=== PATIENT | female | born 1945 | race Caucasian/White ===

== ENCOUNTER 2018-02-06 07:31 | Day surgery (SDC) | payer MEDICARE ==
[2018-02-06] MEDS ORDERED: Lactated Ringer's 500 ML IV ONE (08:02)
[2018-02-06 08:14] VITALS: TEMP 97
[2018-02-06] MEDS ORDERED: Propofol 10 mg/ml Inj (20 ML) ONE (09:10)
[2018-02-06] MEDS ORDERED: Lidocaine PF 2% (5 ml) Inj (For Cardiac Arrhy) IV ONE (09:10)
[2018-02-06 10:09] VITALS: O2SAT 99
[2018-02-06 10:29] VITALS: BP 115/69; PULSE 79; RESP 21
== END 2018-02-06 10:30 | disposition home or self-care (01) ==
LOC: H.ENDO 07:31
PROVIDERS: ATTEND Internal Medicine Gastroenterology
DX: Z12.11 Encounter for screening for malignant neoplasm of colon (principal); D12.9 Benign neoplasm of anus and anal canal; K64.8 Other hemorrhoids; Z86.010 Personal history of colon polyps
CPT/HCPCS: 45390; 82948; 88305; J2704; J7120

== ENCOUNTER 2018-05-28 20:19 | Observation (INO) | payer MEDICARE, OTHER ==
--- NOTE | 2018-05-28 20:36 | ED PDOC ---
HPI:STROKE - Time Time: 20:31 - Historian Historian: Patient - Chief Complaint Chief Complaint: Slurred speech - Onset Date: 05/28/18 Time: 19:30 - Timing Timing: Resolved - TPA Positive for Contraindication: Yes Reason tPA is not being Administered: NIH 0; Symptoms - Notes: Notes:: Per son, pt. had slurred speech and confusion 1 hr prior to arrival. Before 1 hr, pt. was fine. Per EMS, when they showed up, pt. had no symptoms. Pt. currently denies any symptoms. No chest pain, numbness, tingles, weakness, dizziness, slurred speech. No headaches. Has hx of 2 strokes. NIHSS Stroke Scale - Date/Time Evaluation Performed Date Performed: 05/28/18 Time Performed: 20:36 When Was NIHSS Performed: Baseline - How Severe is the Stroke Level of Consciousness: 0=Alert LOC to Questions: 0=Both comments correct LOC to commands: 0=Obeys both correctly Best Gaze: 0=Normal Visual: 0=No visual loss Facial: 0=Normal Motor Arm - Left: 0=No drift Motor Arm - Right: 0=No drift Motor Leg - Left: 0=No drift Motor Leg - Right: 0=No drift Limb Ataxia: 0=Absent Sensory: 0=Normal Best Language: 0=No aphasia Dysarthia: 0=Normal articulation Extinction & Inattention (Neglect): 0=Normal, no object Score: 0 rTPA Inclusion/Exclusion - Refusal of Treatment Patient Refused Treatment: No - Inclusion Criteria for Altepase Patient is 18 years or Older: Yes The Clinical Diagnosis of Ischemic Stroke That is Causing a Potentially Disabling Neurological Deficit: No Time of Onset is Well Established to be Less Than 270 Minute Before Treatment Would Begin: Yes Risk/Benefit Discussed With Patient/Family Member Present: No Past Medical History Reviewed: Nursing Documentation, Vital Signs Vital Signs: Last Vital Signs Temp 98 F 05/28/18 20:26 Pulse 82 05/28/18 20:26 Resp 16 05/28/18 20:26 BP 148/92 H 05/28/18 20:26 Pulse Ox 99 05/28/18 20:26 - Medical History PMH: CVA (x2), Diabetes, HTN, Hypercholesterolemia Denies: Chronic Kidney Disease - Surgical History Surgical History: Tonsillectomy - Family History Family History: States: Unknown Family Hx - Living Arrangements Living Arrangements: With Family - Social History Current smoker - smoking cessation education provided: No Alcohol: None Drugs: Denies - Home Medications Home Medications: Ambulatory Orders Medication Instructions Recorded Clopidogrel [Plavix] 1 tab PO DAILY 02/06/18 Glimepiride [amaRYL] 1 tab PO DAILY 02/06/18 Hydrochlorothiazide [Microzide] 1 tab PO DAILY 02/06/18 Levothyroxine [Synthroid] 1 tab PO DAILY 02/06/18 QUEtiapine [Seroquel] 1 tab PO HS 02/06/18 SITagliptin [Januvia] 1 tab PO DAILY 02/06/18 - Allergies Allergies/Adverse Reactions: Allergies Allergy/AdvReac Type Severity Reaction Status Date / Time aspirin Allergy ANAPHYLAXIS Verified 05/28/18 20:26 Penicillins Allergy ANAPHYLAXIS Verified 05/28/18 20:26 shrimp AdvReac ANAPHYLAXIS Verified 05/28/18 20:26 Review of Systems ROS Statement: Except As Marked, All Systems Reviewed And Found Negative Neurological: Positive for: Change in Speech, Confusion Physical Exam - Reviewed Nursing Documentation Reviewed: Yes Vital Signs Reviewed: Yes - Physical Exam Appears: Positive for: Non-toxic, No Acute Distress Head Exam: Positive for: ATRAUMATIC, NORMAL INSPECTION, NORMOCEPHALIC Skin: Positive for: Normal Color, Warm, DRY Eye Exam: Positive for: EOMI, Normal appearance, PERRL ENT: Positive for: Normal ENT Inspection Neck: Positive for: Normal, Painless ROM Cardiovascular/Chest: Positive for: Regular Rate, Rhythm Respiratory: Positive for: CNT, Normal Breath Sounds Gastrointestinal/Abdominal: Positive for: Normal Exam, Soft. Negative for: Tenderness Back: Positive for: Normal Inspection. Negative for: L CVA Tenderness, R CVA Tenderness Extremity: Positive for: Normal ROM. Negative for: Tenderness, Pedal Edema Neurologic/Psych: Positive for: Alert, room cleaner II-XII, Oriented. Negative for: Motor/Sensory Deficits, Mood/Affect, Gait, Aphasia, Facial Droop - Laboratory Results Result Diagrams: 05/28/18 20:37 05/28/18 20:37 Interpretation Of Abn Labs: 24/12.6 bun/cr - ECG ECG: Positive for: Interpreted By Me, Viewed By Me ECG Rhythm: Positive for: Normal QRS, Normal ST Segment, Sinus Rhythm O2 Sat by Pulse Oximetry: 99 Pulse Ox Interpretation: Normal - Radiology X-Ray: Interpreted by Me, Viewed By Me X-Ray Interpretation: No Acute Disease - CT Scan/US ct Other Rad Studies (CT/US): Read By Radiologist Other Rad Interpretation: no acute - Progress ED Course And Treament: 2117: Spoke with Dr. Wayne. Not a thrombolytic candidate. Pt. took plavix today. Wants asa, but pt. allergy so will hold. Spoke with Dr. Pinedo as pt. pcp is Dr. Oniel Negron in [place]. Will admit tele obs and give further orders when pt. reaches floor. Disposition - Clinical Impression Clinical Impression: TIA (transient ischemic attack) - Patient ED Disposition Is Patient to be Admitted: Yes Counseled Patient/Family Regarding: Studies Performed, Diagnosis - Disposition Disposition Time: 21:21 Condition: FAIR - Pt Status Changed To: Hospital Disposition Of: Observation - POA Present On Arrival: None
[2018-05-28] MEDS ORDERED: Sodium Chloride 0.9% 500 ML IV STA (20:40)
[2018-05-28 20:43] LABS: BASO # 0.1 K/uL (0.0-0.2); BASO % 1.1 % (0.0-2.0); EOS # 0.1 K/uL (0.0-0.7); EOS % 1.7 % (0.0-4.0); HEMOGLOBIN 14.5 g/dL (12.0-16.0); LYMPH # 3.2 K/uL (1.0-4.3); LYMPH % 38.2 % (20.0-40.0); MEAN CELL VOLUME 91.4 fl (81.0-99.0); MEAN CORPUSCULAR HEMOGLOBIN 30.1 pg (27.0-31.0); MEAN PLATELET VOLUME 10.8 fl (7.2-11.7); MONO # 0.7 K/uL (0.0-0.8); MONO % 8.6 % (0.0-10.0); NEUT # 4.3 K/uL (1.8-7.0); NEUT % 50.4 % (50.0-75.0); NRBC % 0.1 % (0.0-0.0); RBC 4.81 Mil/uL (3.80-5.20); RED CELL DISTRIBUTION WIDTH 15.2 % (11.5-14.5); WHITE BLOOD COUNT 8.5 K/uL (4.8-10.8)
[2018-05-28 20:51] LABS: ALB/GLOB RATIO 1.3 (1.0-2.1); ALBUMIN 4.4 g/dL (3.5-5.0); ALT/SGPT 45 U/L (9-52); AST/SGOT 41 U/L (14-36); BLOOD UREA NITROGEN 27 mg/dl (7-17); CALCIUM 10.3 mg/dL (8.4-10.2); GFR AFRICAN-AMERICAN 39; GFR NON-AFRICAN AMERICAN 32; HDL CHOLESTEROL 36 MG/DL (30-70)
[2018-05-28 20:52] LABS: PARTIAL THROMBOPLASTIN TIME 31.7 Seconds (25.6-37.1)
[2018-05-28 21:02] LABS: LDL CHOLESTEROL 72 mg/dL (0-129)
--- NOTE | 2018-05-29 08:44 | CT ---
PROCEDURE: CT HEAD WITHOUT CONTRAST. HISTORY: code stroke COMPARISON: None available. TECHNIQUE: Axial computed tomography images were obtained through the head/brain without intravenous contrast. Radiation dose: Total exam DLP = 853.73 mGy-cm. This CT exam was performed using one or more of the following dose reduction techniques: Automated exposure control, adjustment of the mA and/or kV according to patient size, and/or use of iterative reconstruction technique. FINDINGS: HEMORRHAGE: No intracranial hemorrhage. BRAIN: No mass effect or edema. Old left frontal cat radiata infarct. No evidence of acute infarct. Moderate chronic periventricular and deep white matter lucency consistent with chronic microvascular ischemic change. VENTRICLES: Unremarkable. No hydrocephalus. CALVARIUM: Unremarkable. PARANASAL SINUSES: Unremarkable as visualized. No significant inflammatory changes. MASTOID AIR CELLS: Unremarkable as visualized. No inflammatory changes. OTHER FINDINGS: None. IMPRESSION: No evidence of acute infarct. No intracranial mass or hemorrhage. Chronic white matter ischemic change. Old left cat radiata infarct. Preliminary interpretation of this examination was reported by [facility] at 8:52 p.m. on 05/28/2018. There is concurrence of this report with the preliminary interpretation.
[2018-05-29] MEDS ORDERED: Levothyroxine 75 MCG TAB PO SCH (09:00)
[2018-05-29] MEDS ORDERED: Cholecalciferol 1,000 INTLU TAB PO SCH (09:00)
--- NOTE | 2018-05-29 09:57 | CP.PCM.CON ---
History of Present Illness - History of Present Illness History of Present Illness: Consultation for evalvuation of TIA/ slurred speech and connfusion HPI: 72-year-old female with past medical history significant for hypertension diabetes mellitus CVA dementia presented with complaints of episode of delirium with the slurred speech that we was noted by her friend 1 hour prior to presentation. According to the patient she went out to shop and on returning started feeling not herself friend who was visiting noticed that she is somewhat confused with a mild sliding in her speech. Prior to the episode she denied having any chest pains shortness of breath palpitations she does have prior history of CVA. CT of the head in the emergency room showed old left frontal coronary radiata patient herself feels that symptoms and attributed most likely secondary to effects of heat as it was a hard day and she felt somewhat dehydrated clinically and on laboratory findings consistent with possible prerenal azotemia with an elevated BUN and creatinine she was given Plavix by neurology is allergic to aspirin and is awaiting MRI and MRA of the brain and carotids as well as an echocardiogram. EKG reviewed normal sinus rhythm left anterior fascicular block with mild left atrial enlargement. Infarct with no acute changes. Review of Systems - Review of Systems Systems not reviewed;Unavailable: Acuity of Condition - Constitutional Constitutional: As Per HPI - EENT Eyes: As Per HPI Ears: As Per HPI - Breasts Breasts: As Per HPI - Cardiovascular Cardiovascular: As Per HPI - Respiratory Respiratory: As Per HPI - Gastrointestinal Gastrointestinal: As Per HPI - Genitourinary Genitourinary: As Per HPI - Reproductive: Female Reproductive:Female: As Per HPI - Menstruation Menstruation: As Per HPI - Musculoskeletal Musculoskeletal: As Per HPI - Integumentary Integumentary: As Per HPI - Neurological Neurological: As Per HPI - Psychiatric Psychiatric: As Per HPI - Endocrine Endocrine: As Per HPI - Hematologic/Lymphatic Hematologic: As Per HPI Past Patient History - Past Medical History & Family History Past Medical History?: Yes - Past Social History Smoking Status: Former Smoker - CARDIAC Hx Cardiac Disorders: Yes - PULMONARY Hx Respiratory Disorders: No - NEUROLOGICAL Hx Neurological Disorder: Yes - HEENT Hx HEENT Problems: No - RENAL Hx Chronic Kidney Disease: No - ENDOCRINE/METABOLIC Hx Endocrine Disorders: Yes - HEMATOLOGICAL/ONCOLOGICAL Hx Blood Disorders: No - INTEGUMENTARY Hx Dermatological Problems: No - MUSCULOSKELETAL/RHEUMATOLOGICAL Hx Musculoskeletal Disorders: No Hx Falls: No - GASTROINTESTINAL Hx Gastrointestinal Disorders: No - GENITOURINARY/GYNECOLOGICAL Hx Genitourinary Disorders: No - PSYCHIATRIC Hx Psychophysiologic Disorder: No Hx Emotional Abuse: No Hx Physical Abuse: No Hx Substance Use: No - SURGICAL HISTORY Hx Tonsillectomy: Yes - ANESTHESIA Hx Anesthesia: Yes Hx Anesthesia Reactions: No Hx Malignant Hyperthermia: No Meds Allergies/Adverse Reactions: Allergies Allergy/AdvReac Type Severity Reaction Status Date / Time aspirin Allergy ANAPHYLAXIS Verified 05/28/18 20:26 Penicillins Allergy ANAPHYLAXIS Verified 05/28/18 20:26 shrimp AdvReac ANAPHYLAXIS Verified 05/28/18 20:26 - Medications Medications: Current Medications Atorvastatin Calcium (Lipitor) 10 mg PO DAILY [facility] Calcitriol (Rocaltrol) 0.25 mcg PO DAILY [facility] Cholecalciferol (Vitamin D) 1,000 intlu PO DAILY [facility] Clopidogrel Bisulfate (Plavix) 75 mg PO DAILY [facility] Last Admin: 05/29/18 09:33 Dose: 75 mg Donepezil HCl (Aricept) 10 mg PO DAILY [facility] Enoxaparin Sodium (Lovenox) 40 mg SC DAILY [facility] PRN Reason: Protocol Glipizide (Glucotrol Xl) 10 mg PO DAILY [facility] Hydrochlorothiazide (Microzide) 12.5 mg PO DAILY [facility] Isosorbide Mononitrate (Imdur Er) 30 mg PO DAILY [facility] Levothyroxine Sodium (Synthroid) 75 mcg PO DAILY@0630 [facility] Memantine (Namenda) 10 mg PO DAILY [facility] Qictt-8-Bzax Ethyl Esters (Lovaza) 1 gm PO DAILY [facility] Quetiapine Fumarate (Seroquel) 100 mg PO HS [facility] Sitagliptin Phosphate (Januvia) 100 mg PO DAILY [facility] Physical Exam - Constitutional Appears: Well - Head Exam Head Exam: ATRAUMATIC, NORMAL INSPECTION, NORMOCEPHALIC - Eye Exam Eye Exam: EOMI, Normal appearance, PERRL Pupil Exam: NORMAL ACCOMODATION, PERRL - ENT Exam ENT Exam: Mucous Membranes Moist, Normal Exam - Neck Exam Neck exam: Positive for: Normal Inspection - Respiratory Exam Respiratory Exam: Clear to Auscultation Bilateral, NORMAL BREATHING PATTERN - Cardiovascular Exam Cardiovascular Exam: REGULAR RHYTHM, +S1, +S2, Systolic Murmur - GI/Abdominal Exam GI & Abdominal Exam: Normal Bowel Sounds, Soft. absent: Tenderness - Extremities Exam Extremities exam: Positive for: normal inspection - Back Exam Back exam: NORMAL INSPECTION - Neurological Exam Neurological exam: Alert, CN II-XII Intact, Normal Gait, Oriented x3, Reflexes Normal - Psychiatric Exam Psychiatric exam: Normal Affect, Normal Mood - Skin Skin Exam: Dry, Intact, Normal Color, Warm Results - Vital Signs Recent Vital Signs: Last Vital Signs Temp 97.7 F 05/29/18 08:00 Pulse 57 L 05/29/18 08:00 Resp 18 05/29/18 08:00 BP 92/55 L 05/29/18 08:00 Pulse Ox 98 05/29/18 08:00 - Labs Result Diagrams: 05/28/18 20:37 05/28/18 20:37 Labs: Laboratory Results - last 24 hr 05/28/18 05/28/18 05/28/18 20:29 20:30 20:37 WBC 8.5 RBC 4.81 Hgb 14.5 Hct 43.9 MCV 91.4 MCH 30.1 MCHC 33.0 RDW 15.2 H Plt Count 198 MPV 10.8 Neut % (Auto) 50.4 Lymph % (Auto) 38.2 [place] % (Auto) 8.6 Eos % (Auto) 1.7 Baso % (Auto) 1.1 Neut # (Auto) 4.3 Lymph # (Auto) 3.2 [place] # (Auto) 0.7 Eos # (Auto) 0.1 Baso # (Auto) 0.1 ESR PT INR APTT Sodium Potassium Chloride Carbon Dioxide Anion Gap BUN Creatinine Est GFR ( Amer) Est GFR (Non-Af Amer) POC Glucose (mg/dL) 139 H Random Glucose Calcium Total Bilirubin AST ALT Alkaline Phosphatase Troponin I Total Protein Albumin Globulin Albumin/Globulin Ratio Triglycerides Cholesterol LDL Cholesterol Direct HDL Cholesterol Vitamin B12 TSH 3rd Generation Blood Type O POSITIVE Antibody Screen Negative BBK History Checked No verified bt 05/28/18 05/28/18 05/29/18 20:37 20:37 04:51 WBC RBC Hgb Hct MCV MCH MCHC RDW Plt Count MPV Neut % (Auto) Lymph % (Auto) [place] % (Auto) Eos % (Auto) Baso % (Auto) Neut # (Auto) Lymph # (Auto) [place] # (Auto) Eos # (Auto) Baso # (Auto) ESR PT 11.0 INR 1.0 APTT 31.7 Sodium 140 Potassium 4.3 Chloride 103 Carbon Dioxide 22 Anion Gap 19 BUN 27 H Creatinine 1.6 H Est GFR ( Amer) 39 Est GFR (Non-Af Amer) 32 POC Glucose (mg/dL) Random Glucose 143 H Calcium 10.3 H Total Bilirubin 0.5 AST 41 H ALT 45 Alkaline Phosphatase 102 Troponin I < 0.0120 Total Protein 7.8 Albumin 4.4 Globulin 3.4 Albumin/Globulin Ratio 1.3 Triglycerides 239 H Cholesterol 154 LDL Cholesterol Direct 72 HDL Cholesterol 36 Vitamin B12 505 TSH 3rd Generation 8.69 H Blood Type Antibody Screen BBK History Checked 05/29/18 06:00 WBC RBC Hgb Hct MCV MCH MCHC RDW Plt Count MPV Neut % (Auto) Lymph % (Auto) [place] % (Auto) Eos % (Auto) Baso % (Auto) Neut # (Auto) Lymph # (Auto) [place] # (Auto) Eos # (Auto) Baso # (Auto) ESR 16 PT INR APTT Sodium Potassium Chloride Carbon Dioxide Anion Gap BUN Creatinine Est GFR ( Amer) Est GFR (Non-Af Amer) POC Glucose (mg/dL) Random Glucose Calcium Total Bilirubin AST ALT Alkaline Phosphatase Troponin I Total Protein Albumin Globulin Albumin/Globulin Ratio Triglycerides Cholesterol LDL Cholesterol Direct HDL Cholesterol Vitamin B12 TSH 3rd Generation Blood Type Antibody Screen BBK History Checked Assessment & Plan (1) TIA (transient ischemic attack) Assessment and Plan: echo pending MRA ordered monitor on telemetry Status: Acute (2) HTN (hypertension) Status: Acute (3) Dyslipidemia Status: Acute
--- NOTE | 2018-05-29 10:09 | RAD ---
HISTORY: Code Stroke COMPARISON: No prior. FINDINGS: LUNGS: No active pulmonary disease. PLEURA: No significant pleural effusion identified, no pneumothorax apparent. CARDIOVASCULAR: Normal. OSSEOUS STRUCTURES: No significant abnormalities. VISUALIZED UPPER ABDOMEN: Normal. OTHER FINDINGS: None. IMPRESSION: No active disease.
[2018-05-29] MEDS: GlipiZIDE 10 mg SR Tab PO SCH (10:59)
[2018-05-29] MEDS: Omega-3-Acid Ethyl Esters 1 GM Cap PO SCH (11:01)
[2018-05-29] MEDS: Enoxaparin 40 mg Syringe SC SCH (11:01)
[2018-05-29] MEDS ORDERED: Levothyroxine 100 MCG TAB PO SCH (13:30)
--- NOTE | 2018-05-29 15:06 | MRI ---
PROCEDURE: MRI BRAIN WITHOUT CONTRAST HISTORY: r/o TIA COMPARISON: None. TECHNIQUE: Multiplanar, multisequence MR images of the brain were obtained without intravenous contrast enhancement. FINDINGS: HEMORRHAGE: No acute parenchymal, subarachnoid or extra-axial hemorrhage. No evidence of hemosiderin deposition identified on gradient echo weighted sequence. DWI: There is a very tiny acute/ subacute infarct in the right medial inferior occipital lobe which is best seen on diffusion imaging series 3, image number 7. No other acute or subacute infarcts are identified. BRAIN PARENCHYMA: There is a moderate-sized chronic left MCA territory infarct which involves the left frontal lobe including the left frontal operculum and and superior the sub insular region. There also appears to be some involvement of the left anterior superior basal ganglia as well. In addition, there are moderate diffuse/confluent chronic white matter ischemic changes seen throughout the remaining periventricular white matter both cerebral hemispheres with a few scattered superior basal nuclei/ coronal radiata junction chronic lacunar-type infarcts. There are small chronic appearing lacunar type infarcts both cerebellar hemispheres. VENTRICLES: No obstructive hydrocephalus. CRANIUM: Unremarkable. ORBITS: Orbits and contents unremarkable. PARANASAL SINUSES/MASTOIDS: Clear VASCULAR SYSTEM: Visualized major vascular flow voids at skull base patent. OTHER FINDINGS: None. IMPRESSION: There is a tiny acute/subacute infarct right inferomedial occipital pole. Chronic white matter superior basal ganglia/ coronal radiata junction and bilateral cerebellar ischemic changes as described. Note that these findings were discussed with ICU Nurse Oly at approximately 2:54 p.m. with written down and read back verification.
--- NOTE | 2018-05-29 15:10 | MRI ---
PROCEDURE: MR Angiography of the neck without contrast HISTORY: r/o TIA COMPARISON: None available. TECHNIQUE: 3D [id number] angiography of the neck was performed. Rotating maximum intensity projection images of the cervical carotid and vertebral arteries were generated. The origins of the common carotid arteries were not visualized, which is a limitation inherent to the non-contrast time of flight technique. FINDINGS: RIGHT CAROTID ARTERIES: Common Carotid Artery: Normal. Carotid Bifurcation: Normal. Internal Carotid Artery:Normal. Note is made of a short retropharyngeal course of the mid-distal right common carotid artery and bifurcation as well as proximal right internal carotid artery. External Carotid Artery (proximal branches): Normal. LEFT CAROTID ARTERIES: Common Carotid Artery: Normal. Carotid Bifurcation: Normal. Internal Carotid Artery:Normal. External Carotid Artery (proximal branches): Normal. VERTEBRAL ARTERIES: Both vertebral arteries are patent throughout. Vertebral arteries are relatively symmetric OTHER FINDINGS: None. IMPRESSION: Normal MR Angiography of the neck. . Note is made of a short retropharyngeal course of the mid-distal right common carotid artery, carotid bifurcation and proximal right internal carotid artery
--- NOTE | 2018-05-29 15:22 | MRI ---
PROCEDURE: Magnetic Resonance Angiography Brain HISTORY: Rule out TIA COMPARISON: Correlation made with concurrent MRI brain and MRA neck TECHNIQUE: 3D time of flight MR angiography of the intracranial arteries was performed. Rotating maximum intensity projection images were generated. FINDINGS: INTERNAL CAROTID ARTERIES: Unremarkable. The skull base, petrous, cavernous and supraclinoid segments are bilaterally widely patient. ANTERIOR CEREBRAL ARTERIES: Unremarkable. A1 and A2 segments are widely patent. Smaller distal branches unremarkable, as visualized. MIDDLE CEREBRAL ARTERIES: M1 and M2 segments are widely patent. . Minimal of asymmetry of the perisylvian branches with slight paucity of left-sided left anterior branches likely related to prior infarct. . POSTERIOR CIRCULATION: Basilar Artery: Unremarkable. Distal Vertebral Arteries: Unremarkable. Posterior Cerebral Arteries: There appears to be mild localized narrowing of the P2 segment right posterior cerebral artery. . Posterior Inferior Cerebellar Arteries: Unremarkable. ANEURYSM/ VASCULAR MALFORMATIONS: None. OTHER FINDINGS: None. IMPRESSION: . There appears to be a slight on asymmetry of the distal branches of the middle cerebral arteries, left-sided which demonstrates a relative paucity compared the right corresponding within infarct changes involving the anterior branches of the left MCA. In addition, there is localized mild narrowing P2 segment right posterior cerebral artery
--- NOTE | 2018-05-29 16:09 | CARD ---
APPROVED REPORT EXAM: Two-dimensional and M-mode echocardiogram with Doppler and color Doppler. Other Information Quality : AverageRhythm : NSR Technically limited study due to Poor Echo Window INDICATION LV Function:SystolicDiastolic Inf FL 2D DIMENSIONS IVSd1.11 (0.7-1.1cm)LVDd3.65 (3.9-5.9cm) LVOT Diameter2.08 (1.8-2.4cm)PWd1.02 (0.7-1.1cm) IVSs1.44 (0.8-1.2cm)LVDs2.67 (2.5-4.0cm) FS (%) 26.9 %PWs1.27 (0.8-1.2cm) M-Mode DIMENSIONS Left Atrium (MM)3.29 (2.5-4.0cm)Aortic Root2.91 (2.2-3.7cm) Aortic Cusp Exc.1.88 (1.5-2.0cm) Mitral Valve MV E Dhwlbshg80.2cm/sMV DECEL [id number] A Cehdcmyr735.9cm/s MV MJQ611edD/A ratio0.6MVA (PHT)1.50cm2 TDI Lateral E' Peak V5.46cm/sMedial E' Peak V5.54cm/sE/Lateral E'14.5 E/Medial E'14.3 Pulmonary Valve PV Peak Zimctspq360.1cm/s LEFT VENTRICLE The left ventricle is normal size. There is borderline to mild concentric left ventricular hypertrophy. The left ventricle is hyperdynamic. The Ejection Fraction is >70%. There is normal LV segmental wall motion. Transmitral Doppler flow pattern is Grade I-abnormal relaxation pattern. Left Ventricular End Diastolic Pressure is mildly elevated. RIGHT VENTRICLE The right ventricle is normal size. The right ventricular systolic function is normal. ATRIA The left atrium is borderline dilated. The right atrium size is normal. AORTIC VALVE The aortic valve is normal in structure. No aortic regurgitation is present. There is no aortic valvular stenosis. MITRAL VALVE The mitral valve is normal in structure. There is no mitral valve stenosis. Mitral regurgitation is trace. TRICUSPID VALVE The tricuspid valve is normal in structure. There is trace tricuspid regurgitation. PULMONIC VALVE The pulmonic valve is not well visualized. There is no pulmonic valvular regurgitation. GREAT VESSELS The aortic root is normal in size. The IVC was not visualized. PERICARDIAL EFFUSION The pericardium appears normal. <Conclusion> The left ventricle is hyperdynamic. The Ejection Fraction is >70%. Transmitral Doppler flow pattern is Grade I-abnormal relaxation pattern. Left Ventricular End Diastolic Pressure is mildly elevated. Mitral regurgitation is trace.
--- NOTE | 2018-05-29 16:52 | CARD ---
APPROVED REPORT EKG Measurement Heart [id number] <Conclusion> Normal sinus rhythm Left axis deviation Inferior infarct, age undetermined Abnormal ECG
[2018-05-29 16:54] LABS: FOLATE 11.2 ng/mL
--- NOTE | 2018-05-29 19:36 | CP.PCM.CON ---
History of Present Illness - History of Present Illness History of Present Illness: Neurology Consultation Note: Mr. Gonzalez is a 72-year-old woman with a past medical history of vascular dementia, previous ischemic strokes, hypertension, dyslipidemia, who presented to the ED yesterday with resolving slurred speech. MRI of the brain was done today and showed a small right DIRECTORY OPERATOR infarct with P2 stenosis on the MRA. She is allergic to aspirin, so was given Plavix. The patient is currently asymptomatic. Echocardiogram results are pending. She had some mild acute kidney injury, possibly from dehydration. Review of Systems - Review of Systems All systems: reviewed and no additional remarkable complaints except Past Patient History - Past Medical History & Family History Past Medical History?: Yes - Past Social History Smoking Status: Former Smoker - CARDIAC Hx Cardiac Disorders: Yes Hx Hypercholesterolemia: Yes Hx Hypertension: Yes - PULMONARY Hx Respiratory Disorders: No - NEUROLOGICAL HX Cerebrovascular Accident: Yes (x 2x) - HEENT Hx HEENT Problems: No - RENAL Hx Chronic Kidney Disease: No - ENDOCRINE/METABOLIC Hx Diabetes Mellitus Type 2: Yes - HEMATOLOGICAL/ONCOLOGICAL Hx Blood Disorders: No - INTEGUMENTARY Hx Dermatological Problems: No - MUSCULOSKELETAL/RHEUMATOLOGICAL Hx Musculoskeletal Disorders: No Hx Falls: No - GASTROINTESTINAL Hx Gastrointestinal Disorders: No - GENITOURINARY/GYNECOLOGICAL Hx Genitourinary Disorders: No - PSYCHIATRIC Hx Psychophysiologic Disorder: No Hx Emotional Abuse: No Hx Physical Abuse: No Hx Substance Use: No - SURGICAL HISTORY Hx Tonsillectomy: Yes - ANESTHESIA Hx Anesthesia: Yes Hx Anesthesia Reactions: No Hx Malignant Hyperthermia: No Meds Allergies/Adverse Reactions: Allergies Allergy/AdvReac Type Severity Reaction Status Date / Time aspirin Allergy ANAPHYLAXIS Verified 05/28/18 20:26 Penicillins Allergy ANAPHYLAXIS Verified 05/28/18 20:26 shrimp AdvReac ANAPHYLAXIS Verified 05/28/18 20:26 - Medications Medications: Current Medications Atorvastatin Calcium (Lipitor) 10 mg PO DAILY [facility] Last Admin: 05/29/18 11:00 Dose: 10 mg Calcitriol (Rocaltrol) 0.25 mcg PO DAILY [facility] Last Admin: 05/29/18 11:02 Dose: 0.25 mcg Cholecalciferol (Vitamin D) 1,000 intlu PO DAILY [facility] Last Admin: 05/29/18 11:02 Dose: 1,000 intlu Clopidogrel Bisulfate (Plavix) 75 mg PO DAILY [facility] Last Admin: 05/29/18 09:33 Dose: 75 mg Donepezil HCl (Aricept) 10 mg PO DAILY [facility] Last Admin: 05/29/18 10:59 Dose: 10 mg Enoxaparin Sodium (Lovenox) 40 mg SC DAILY [facility] PRN Reason: Protocol Last Admin: 05/29/18 11:01 Dose: 40 mg Glipizide (Glucotrol Xl) 10 mg PO DAILY [facility] Last Admin: 05/29/18 10:59 Dose: 10 mg Hydrochlorothiazide (Microzide) 12.5 mg PO DAILY [facility] Last Admin: 05/29/18 11:01 Dose: 12.5 mg Isosorbide Mononitrate (Imdur Er) 30 mg PO DAILY [facility] Last Admin: 05/29/18 10:59 Dose: 30 mg Levothyroxine Sodium (Synthroid) 100 mcg PO DAILY@0630 [facility] Memantine (Namenda) 10 mg PO DAILY [facility] Last Admin: 05/29/18 11:01 Dose: 10 mg [id number] Ethyl Esters (Lovaza) 1 gm PO DAILY [facility] Last Admin: 05/29/18 11:01 Dose: 1 gm Quetiapine Fumarate (Seroquel) 100 mg PO [facility] Sitagliptin Phosphate (Januvia) 100 mg PO DAILY [facility] Last Admin: 05/29/18 11:00 Dose: 100 mg Physical Exam - Neurological Exam Neurological exam: Alert, CN II-XII Intact, Normal Gait, Oriented x3, Reflexes Normal Additional comments: No focal weakness noted, slight right facial droop, otherwise normal CN exam. Strength/sensation are symmetrical, visual haines are intact; NIHSS = 0 Results - Vital Signs Recent Vital Signs: Last Vital Signs Temp 98.3 F 05/29/18 16:12 Pulse 78 05/29/18 16:12 Resp 17 05/29/18 16:12 BP 124/75 05/29/18 16:12 Pulse Ox 98 05/29/18 16:12 - Labs Result Diagrams: 05/28/18 20:37 05/28/18 20:37 Labs: Laboratory Results - last 24 hr 05/28/18 05/28/18 05/28/18 20:29 20:30 20:30 WBC RBC Hgb Hct MCV MCH MCHC RDW Plt Count MPV Neut % (Auto) Lymph % (Auto) [place] % (Auto) Eos % (Auto) Baso % (Auto) Neut # (Auto) Lymph # (Auto) [place] # (Auto) Eos # (Auto) Baso # (Auto) ESR PT INR APTT Sodium Potassium Chloride Carbon Dioxide Anion Gap BUN Creatinine Est GFR ( Amer) Est GFR (Non-Af Amer) POC Glucose (mg/dL) 139 H Random Glucose Hemoglobin A1c 9.7 H Calcium Total Bilirubin AST ALT Alkaline Phosphatase Troponin I C-React Prot High Sens Total Protein Albumin Globulin Albumin/Globulin Ratio Triglycerides Cholesterol LDL Cholesterol Direct HDL Cholesterol Vitamin B12 25-OH Vitamin D Total Folate TSH 3rd Generation Blood Type O POSITIVE Antibody Screen Negative BBK History Checked No verified bt 05/28/18 05/28/18 05/28/18 20:37 20:37 20:37 WBC 8.5 RBC 4.81 Hgb 14.5 Hct 43.9 MCV 91.4 MCH 30.1 MCHC 33.0 RDW 15.2 H Plt Count 198 MPV 10.8 Neut % (Auto) 50.4 Lymph % (Auto) 38.2 [place] % (Auto) 8.6 Eos % (Auto) 1.7 Baso % (Auto) 1.1 Neut # (Auto) 4.3 Lymph # (Auto) 3.2 [place] # (Auto) 0.7 Eos # (Auto) 0.1 Baso # (Auto) 0.1 ESR PT 11.0 INR 1.0 APTT 31.7 Sodium 140 Potassium 4.3 Chloride 103 Carbon Dioxide 22 Anion Gap 19 BUN 27 H Creatinine 1.6 H Est GFR ( Amer) 39 Est GFR (Non-Af Amer) 32 POC Glucose (mg/dL) Random Glucose 143 H Hemoglobin A1c Calcium 10.3 H Total Bilirubin 0.5 AST 41 H ALT 45 Alkaline Phosphatase 102 Troponin I < 0.0120 C-React Prot High Sens Total Protein 7.8 Albumin 4.4 Globulin 3.4 Albumin/Globulin Ratio 1.3 Triglycerides 239 H Cholesterol 154 LDL Cholesterol Direct 72 HDL Cholesterol 36 Vitamin B12 25-OH Vitamin D Total Folate TSH 3rd Generation Blood Type Antibody Screen BBK History Checked 05/29/18 05/29/18 05/29/18 04:51 06:00 06:00 WBC RBC Hgb Hct MCV MCH MCHC RDW Plt Count MPV Neut % (Auto) Lymph % (Auto) [place] % (Auto) Eos % (Auto) Baso % (Auto) Neut # (Auto) Lymph # (Auto) [place] # (Auto) Eos # (Auto) Baso # (Auto) ESR PT INR APTT Sodium Potassium Chloride Carbon Dioxide Anion Gap BUN Creatinine Est GFR ( Amer) Est GFR (Non-Af Amer) POC Glucose (mg/dL) Random Glucose Hemoglobin A1c Calcium Total Bilirubin AST ALT Alkaline Phosphatase Troponin I C-React Prot High Sens 4.02 H Total Protein Albumin Globulin Albumin/Globulin Ratio Triglycerides Cholesterol LDL Cholesterol Direct HDL Cholesterol Vitamin B12 505 25-OH Vitamin D Total 33.6 Folate 11.2 TSH 3rd Generation 8.69 H Blood Type Antibody Screen BBK History Checked 05/29/18 05/29/18 06:00 17:28 WBC RBC Hgb Hct MCV MCH MCHC RDW Plt Count MPV Neut % (Auto) Lymph % (Auto) [place] % (Auto) Eos % (Auto) Baso % (Auto) Neut # (Auto) Lymph # (Auto) [place] # (Auto) Eos # (Auto) Baso # (Auto) ESR 16 PT INR APTT Sodium Potassium Chloride Carbon Dioxide Anion Gap BUN Creatinine Est GFR ( Amer) Est GFR (Non-Af Amer) POC Glucose (mg/dL) 184 H Random Glucose Hemoglobin A1c Calcium Total Bilirubin AST ALT Alkaline Phosphatase Troponin I C-React Prot High Sens Total Protein Albumin Globulin Albumin/Globulin Ratio Triglycerides Cholesterol LDL Cholesterol Direct HDL Cholesterol Vitamin B12 25-OH Vitamin D Total Folate TSH 3rd Generation Blood Type Antibody Screen BBK History Checked Assessment & Plan (1) Ischemic stroke Assessment and Plan: Her symptoms are mild. The stroke may have been caused by dehydration in conjunction with intracranial atherosclerotic disease as demonstrated by MRA. I recommend continuing Plavix 75 mg daily for secondary stroke prevention. Platelet function testing with PRU (VerifyNow), show also be done to ensure that Plavix is working. In addition, I recommend the followin. Telemetry 2. Echocardiogram with bubble study 3. PT/OT eval and treatment 4. Check B12, folate, Vitamin D, homocysteine, hypercoagulable work-up 5. DVT Px 6. Case management consult Thank you. Status: Acute Priority: High
[2018-05-30 00:20] VITALS: RESP 18
--- NOTE | 2018-05-30 00:33 | HP ---
CHIEF COMPLAINT: Slurred speech and confusion. HISTORY OF PRESENT ILLNESS: This is a 72-year-old female known case of diabetes and hypertension who was having episode of slurred speech and altered mental status which the patient was brought to emergency room and was admitted for further management. REVIEW OF SYSTEMS: At this time is negative for headache, dizziness, syncope, loss of consciousness, chest pain, shortness of breath, nausea, vomiting, diarrhea, constipation, any new joint or extremity pain. Review of system was positive for slurred speech and altered mental status which resolved spontaneously. Review of systems of all other organ system is unremarkable. PAST MEDICAL HISTORY: Significant for hypertension, diabetes. PAST SURGICAL HISTORY: Unremarkable. PERSONAL HISTORY: The patient is currently nonsmoker, nondrinker. No substance abuse. MEDICATIONS: The patient is on multiple medications which is as per reconciliation sheet, which was reviewed and ordered. ALLERGIES: THE PATIENT IS NOT ALLERGIC TO ANY MEDICATIONS. FAMILY HISTORY: Noncontributory. PHYSICAL EXAMINATION: GENERAL: A well-built, well-nourished, overweight 72-year-old female in no acute distress. VITAL SIGNS: Temperature afebrile, pulse 88, respiration 18, blood pressure 136/76. HEENT EXAM: Pupils are reacting to light. No JVD. No thyromegaly. No lymphadenopathy. No nystagmus. Normocephalic, atraumatic skull. HEART EXAM: S1, S2 are normal and regular. No significant murmur, gallop or rub is heard. LUNG EXAM: Shows good bilateral air exchange. No rales or rhonchi. ABDOMEN: Soft, nontender. No organomegaly. No fluid. Bowel sounds are plus and normal. EXTREMITY EXAM: No edema. No calf swelling. No tenderness. No acute ischemia. TECHNOLOGY ARCHITECT EXAM: The patient is alert and oriented x3. There is no sign of any acute gross focal motor or sensory neurological deficit. DIAGNOSTIC DATA: Available diagnostic data reviewed. Telemetry monitoring so far does not reveal any significant arrhythmias. WBC 8.5, hemoglobin 14.5, hematocrit 43.9, platelets 198. Sodium 140, potassium 4.3, chloride 102, bicarb 22, BUN 27, creatinine 1.6, glucose is 143. SMA-12 is unremarkable. Triglycerides are 239. TSH level is 8.69. EKG does not reveal any acute ST-T changes. CAT scan of head is unremarkable. Chest x-ray is clear. ADMITTING IMPRESSION: Transient ischemic attack versus cerebrovascular accident, hypertension, diabetes type 2. PLAN: As ordered. Case and plan discussed with the patient. Sajnay Pinedo MD
[2018-05-30 05:40] LABS: HEMOGLOBIN 13.6 g/dL (12.0-16.0); MEAN CELL VOLUME 91.1 fl (81.0-99.0); MEAN CORPUSCULAR HEMOGLOBIN 29.9 pg (27.0-31.0); MEAN CORPUSCULAR HGB CONC 32.9 g/dL (33.0-37.0); RBC 4.53 Mil/uL (3.80-5.20); WHITE BLOOD COUNT 7.1 K/uL (4.8-10.8)
[2018-05-30 06:00] LABS: ALB/GLOB RATIO 1.4 (1.0-2.1); ALBUMIN 4.1 g/dL (3.5-5.0); CALCIUM 9.6 mg/dL (8.4-10.2)
[2018-05-30] MEDS ORDERED: Levothyroxine 100 MCG TAB PO SCH (06:30)
[2018-05-30] MEDS: Omega-3-Acid Ethyl Esters 1 GM Cap PO SCH (08:29)
[2018-05-30] MEDS: GlipiZIDE 10 mg SR Tab PO SCH (08:29)
[2018-05-30] MEDS: Enoxaparin 40 mg Syringe SC SCH (09:00)
--- NOTE | 2018-05-30 11:57 | CP.PCM.PN ---
Subjective - Date & Time of Evaluation Date of Evaluation: 05/30/18 Time of Evaluation: 07:30 - Subjective Subjective: Pt seen and examined with Dr. Pinedo this am; was resting comfortably in bed. No acute events overnight; states she is able to ambulate around room. Denies chest pain and shortness of breath. Objective - Vital Signs/Intake and Output Vital Signs (last 24 hours): Temp Pulse Resp BP Pulse Ox 97.7 F 63 18 113/74 94 L 05/30/18 08:35 05/30/18 08:35 05/30/18 08:35 05/30/18 08:35 05/30/18 08:35 - Medications Medications: Current Medications Atorvastatin Calcium (Lipitor) 10 mg PO DAILY [facility] Last Admin: 05/30/18 08:29 Dose: 10 mg Calcitriol (Rocaltrol) 0.25 mcg PO DAILY [facility] Last Admin: 05/30/18 08:29 Dose: 0.25 mcg Cholecalciferol (Vitamin D) 1,000 intlu PO DAILY [facility] Last Admin: 05/29/18 11:02 Dose: 1,000 intlu Clopidogrel Bisulfate (Plavix) 75 mg PO DAILY [facility] Last Admin: 05/30/18 08:29 Dose: 75 mg Donepezil HCl (Aricept) 10 mg PO DAILY [facility] Last Admin: 05/30/18 08:29 Dose: 10 mg Enoxaparin Sodium (Lovenox) 40 mg SC DAILY [facility] PRN Reason: Protocol Last Admin: 05/29/18 11:01 Dose: 40 mg Glipizide (Glucotrol Xl) 10 mg PO DAILY [facility] Last Admin: 05/30/18 08:29 Dose: 10 mg Hydrochlorothiazide (Microzide) 12.5 mg PO DAILY [facility] Last Admin: 05/30/18 08:29 Dose: 12.5 mg Isosorbide Mononitrate (Imdur Er) 30 mg PO DAILY [facility] Last Admin: 05/30/18 08:29 Dose: 30 mg Levothyroxine Sodium (Synthroid) 100 mcg PO DAILY@0630 [facility] Memantine (Namenda) 10 mg PO DAILY [facility] Last Admin: 05/30/18 08:29 Dose: 10 mg Wheho-0-Yaoq Ethyl Esters (Lovaza) 1 gm PO DAILY [facility] Last Admin: 05/30/18 08:29 Dose: 1 gm Quetiapine Fumarate (Seroquel) 100 mg PO HS [facility] Last Admin: 05/29/18 21:54 Dose: 100 mg Sitagliptin Phosphate (Januvia) 100 mg PO DAILY [facility] Last Admin: 05/30/18 08:29 Dose: 100 mg - Labs Labs: 05/30/18 04:20 05/30/18 04:20 PT 11.0 Seconds (9.8-13.1) 05/28/18 20:37 INR 1.0 (0.9-1.2) 05/28/18 20:37 APTT 31.7 Seconds (25.6-37.1) 05/28/18 20:37
[2018-05-30 12:04] VITALS: BP 115/77; PULSE 72; TEMP 98.1; O2SAT 97
--- NOTE | 2018-05-30 12:34 | CP.PCM.PCO ---
Assessment & Plan - Assessment and Plan (Free Text) Assessment: pt. cleared for d/c to Home today by and Rx for Plavix and lipitor provided patient has allergy to Aspirin pt. will f/u with and in 1 week
--- NOTE | 2018-05-30 13:39 | IP.NPCORE ---
Stroke Core Measure - CQM - Stroke Antithrombotic Prescribed: Yes If Other selected, reason for not providing: plavix prescribed, pt.has allergy to aspirin Anticoagulation Prescribed for Atrial Flutter, Atrial Fibrillation and History of:: Not Applicable Statin prescribed: Yes
--- NOTE | 2018-05-30 15:14 | CP.PCM.DIS ---
Provider - Provider Date of Admission: 05/28/18 21:22 Attending physician: Sanjay Pinedo MD Consults: Neurology - Dr. Wayne Cardiology - Dr. Gross Time Spent in preparation of Discharge (in minutes): 30 Diagnosis - Discharge Diagnosis (1) TIA (transient ischemic attack) Status: Acute Comment: cleared by neurologist Dr. Wayne to be discharged with prescription for plavix and lipitor; will follow up in 1 week with neuro Hospital Course - Lab Results Lab Results: Most Recent Lab Values WBC 7.1 K/uL (4.8-10.8) 05/30/18 04:20 RBC 4.53 Mil/uL (3.80-5.20) 05/30/18 04:20 Hgb 13.6 g/dL (12.0-16.0) 05/30/18 04:20 Hct 41.3 % (34.0-47.0) 05/30/18 04:20 MCV 91.1 fl (81.0-99.0) 05/30/18 04:20 MCH 29.9 pg (27.0-31.0) 05/30/18 04:20 MCHC 32.9 g/dL (33.0-37.0) L 05/30/18 04:20 RDW 15.0 % (11.5-14.5) H 05/30/18 04:20 Plt Count 173 K/uL (130-400) 05/30/18 04:20 MPV 10.8 fl (7.2-11.7) 05/28/18 20:37 Neut % (Auto) 50.4 % (50.0-75.0) 05/28/18 20:37 Lymph % (Auto) 38.2 % (20.0-40.0) 05/28/18 20:37 [place] % (Auto) 8.6 % (0.0-10.0) 05/28/18 20:37 Eos % (Auto) 1.7 % (0.0-4.0) 05/28/18 20:37 Baso % (Auto) 1.1 % (0.0-2.0) 05/28/18 20:37 Neut # (Auto) 4.3 K/uL (1.8-7.0) 05/28/18 20:37 Lymph # (Auto) 3.2 K/uL (1.0-4.3) 05/28/18 20:37 [place] # (Auto) 0.7 K/uL (0.0-0.8) 05/28/18 20:37 Eos # (Auto) 0.1 K/uL (0.0-0.7) 05/28/18 20:37 Baso # (Auto) 0.1 K/uL (0.0-0.2) 05/28/18 20:37 ESR 16 mm/hr (0-30) 05/29/18 06:00 PT 11.0 Seconds (9.8-13.1) 05/28/18 20:37 INR 1.0 (0.9-1.2) 05/28/18 20:37 APTT 31.7 Seconds (25.6-37.1) 05/28/18 20:37 Sodium 140 mmol/l (132-148) 05/30/18 04:20 Potassium 3.4 MMOL/L (3.6-5.0) L 05/30/18 04:20 Chloride 106 mmol/L (98-107) 05/30/18 04:20 Carbon Dioxide 24 mmol/L (22-30) 05/30/18 04:20 Anion Gap 13 (10-20) 05/30/18 04:20 BUN 23 mg/dl (7-17) H 05/30/18 04:20 Creatinine 1.1 mg/dl (0.7-1.2) 05/30/18 04:20 Est GFR ( Amer) 59 05/30/18 04:20 Est GFR (Non-Af Amer) 49 05/30/18 04:20 POC Glucose (mg/dL) 238 mg/dL (65-110) H 05/30/18 11:21 Random Glucose 169 mg/dL (65-105) H 05/30/18 04:20 Hemoglobin A1c 9.7 % (4.2-6.5) H 05/29/18 13:27 Calcium 9.6 mg/dL (8.4-10.2) 05/30/18 04:20 Total Bilirubin 0.5 mg/dl (0.2-1.3) 05/30/18 04:20 AST 26 U/L (14-36) 05/30/18 04:20 ALT 44 U/L (9-52) 05/30/18 04:20 Alkaline Phosphatase 98 U/L (38-126) 05/30/18 04:20 Troponin I < 0.0120 ng/mL (0.00-0.120) 05/28/18 20:37 C-React Prot High Sens 4.02 mg/L (1.00-3.00) H 05/29/18 06:00 Total Protein 7.0 G/DL (6.3-8.2) 05/30/18 04:20 Albumin 4.1 g/dL (3.5-5.0) 05/30/18 04:20 Globulin 3.0 gm/dL (2.2-3.9) 05/30/18 04:20 Albumin/Globulin Ratio 1.4 (1.0-2.1) 05/30/18 04:20 Triglycerides 239 mg/DL (0-149) H 05/28/18 20:37 Cholesterol 154 mg/dL (0-199) 05/28/18 20:37 LDL Cholesterol Direct 72 mg/dL (0-129) 05/28/18 20:37 HDL Cholesterol 36 MG/DL (30-70) 05/28/18 20:37 Vitamin B12 505 pg/mL (239-931) 05/29/18 04:51 25-OH Vitamin D Total 33.6 NG/ML (30.0-100.0) 05/29/18 06:00 Folate 11.2 ng/mL 05/29/18 04:51 Homocysteine 19.3 umol/L (4.7-12.6) H 05/29/18 04:51 TSH 3rd Generation 8.69 mIU/ML (0.46-4.68) H 05/29/18 04:51 Blood Type O POSITIVE 05/28/18 20:30 Antibody Screen Negative 05/28/18 20:30 BBK History Checked No verified bt 05/28/18 20:30 - Hospital Course Hospital Course: Shala Gonzalez is a 72 yo female with PMH vascular dementia, previous ischemic strokes, hypertension, dyslipidemia. She presented to ED with symptoms of slurred speech after spending time shopping outside; the episode self- resolved. Neuro and cardio were consulted. MRI/MRA of the brain was done and showed a small right VP CLINICAL RESEARCH infarct with P2 stenosis. Due to aspirin allergy, she was started on plavix. She underwent echocardiogram which showed: EF 70%. Today she was cleared by neurologist Dr. Wayne to be discharged with prescription for plavix and lipitor; will follow up in 1 week with neuro for results of gene studies for plavix, and will follow up with PMD in 1 week. Discharge Exam - Head Exam Head Exam: ATRAUMATIC, NORMAL INSPECTION, NORMOCEPHALIC - Eye Exam Eye Exam: Normal appearance - ENT Exam ENT Exam: Mucous Membranes Moist - Respiratory Exam Respiratory Exam: Clear to PA & Lateral, NORMAL BREATHING PATTERN - Cardiovascular Exam Cardiovascular Exam: REGULAR RHYTHM, +S1, +S2 - GI/Abdominal Exam GI & Abdominal Exam: Unremarkable - Extremities Exam Extremities exam: normal inspection - Neurological Exam Neurological exam: Alert - Psychiatric Exam Psychiatric exam: Normal Mood Discharge Plan - Discharge Medications Prescriptions: Atorvastatin [Lipitor] 10 mg PO DAILY #30 tab Clopidogrel [Plavix] 75 mg PO DAILY #30 tab - Follow Up Plan Condition: STABLE Disposition: HOME/ ROUTINE Instructions: Transient Ischemic Attack (DC) Additional Instructions: pt. cleared for d/c to Home today by and Rx for Plavix and lipitor provided patient has allergy to Aspirin pt. will f/u with and in 1 week Referrals: Sanjay Pinedo MD [Staff Provider] - Avelino Wayne MD [Medical Doctor] - Clinical Quality Measures - CQM - Stroke Antithrombotic Prescribed: Yes Statin prescribed: Yes
== END 2018-05-30 13:45 | disposition home or self-care (01) ==
LOC: H.ER 20:19 → H.ERHOLD 21:22 → H.TEL 23:31
PROVIDERS: ADMIT Internal Medicine; ATTEND Internal Medicine
DX: G45.9 Transient cerebral ischemic attack, unspecified (principal); F01.50 Vascular dementia, unspecified severity, without behavioral disturbance, psychotic disturbance, mood disturbance, and anxiety; I11.9 Hypertensive heart disease without heart failure; I44.4 Left anterior fascicular block; E86.0 Dehydration; E78.5 Hyperlipidemia, unspecified; E78.00 Pure hypercholesterolemia, unspecified; E11.9 Type 2 diabetes mellitus without complications; Z86.73 Personal history of transient ischemic attack (TIA), and cerebral infarction without residual deficits; Z87.891 Personal history of nicotine dependence; Z88.6 Allergy status to analgesic agent; Z88.0 Allergy status to penicillin; Z91.013 Allergy to seafood
CPT/HCPCS: 36415; 70450; 70544; 70547; 70551; 71045; 80053; 80061; 81240; 82306; 82607; 82746; 82948; 83036; 83090; 84443; 84484; 85025; 85027; 85610; 85651; 85730; 86140; 86850; 86900; 92523; 92610; 93005; 93306; 97162; 97165; 99285; G0378; G8978; G8979; G8987; G8988; G8996; G8997; G8998; G9162; G9163; G9164; J1650; J7040

== ENCOUNTER 2018-06-05 08:06 | Day surgery (SDC) | payer MEDICARE, OTHER ==
[2018-06-05] MEDS ORDERED: Lactated Ringer's 500 ML IV ONE ×2 (08:25→09:10)
[2018-06-05 09:38] VITALS: O2SAT 100
[2018-06-05] MEDS ORDERED: Etomidate 20 mg/10ml Inj IV ONE (10:25)
[2018-06-05] MEDS ORDERED: Propofol 10 mg/ml Inj (20 ML) ONE (10:26)
[2018-06-05] MEDS ORDERED: ePHEDrine 50 mg/ml Inj ONE (10:41)
[2018-06-05 10:54] VITALS: TEMP 96.9
[2018-06-05 11:15] VITALS: BP 105/65; PULSE 66; RESP 15
== END 2018-06-05 11:58 | disposition home or self-care (01) ==
LOC: H.ENDO 08:06
PROVIDERS: ATTEND Internal Medicine Gastroenterology
DX: Z86.010 Personal history of colon polyps (principal); K64.8 Other hemorrhoids; I25.10 Atherosclerotic heart disease of native coronary artery without angina pectoris; Z86.73 Personal history of transient ischemic attack (TIA), and cerebral infarction without residual deficits; E11.9 Type 2 diabetes mellitus without complications; E78.5 Hyperlipidemia, unspecified; I10 Essential (primary) hypertension; E03.9 Hypothyroidism, unspecified; F03.90 Unspecified dementia, unspecified severity, without behavioral disturbance, psychotic disturbance, mood disturbance, and anxiety
CPT/HCPCS: 45378; J2001; J2704; J7120

== ENCOUNTER 2018-06-25 00:12 | Inpatient (IN) | payer MEDICARE, OTHER ==
--- NOTE | 2018-06-25 00:55 | ED PDOC ---
Addendum entered and electronically signed by Erica Sharma MD 06/25/18 04:02: Addendum Addendum: 06/25/18 04:01 Family information: Daughter: Allison: [phone], Son Robi: [phone] Original Note: HPI: Chest Pain Chief Complaint (Provider): chest pain History Per: Patient History/Exam Limitations: no limitations Onset/Duration Of Symptoms: Hrs Current Symptoms Are (Timing): Still Present Severity: Moderate Pain Scale Rating Of: 7 Quality: Pressure Associated Symptoms: denies: Nausea, Dyspnea, Diaphoresis, Syncope <Erica Sharma - Last Filed: 06/25/18 04:01> <Jim Chase - Last Filed: 06/25/18 19:11> Time Seen by Provider: 06/25/18 00:41 Chief Complaint (Nursing): Chest Pain Additional Complaint(s): 72 y/o F with h/o HTN, DM, Stroke x 2, possible TIA presents complaining of middle chest pain. Patient states that she had a first episode of pressure like middle chest pain when she was sleeping Tuesday night, her pain lasted for minutes, and resolved by itself, and without intervention. Then she had another episode on Tuesday night at rest, when watching TV, same quality of pain, pressure like, but more intense 10/10, no radiates, no aggravating factors, took one sublingual nitro at home ( prescribed by her PMD due to a h/o mid chest pain when walking up stairs, and SOB on exertion), got very mild relief, and because pain was constant, and still present her family called the ambulance. Denies association with SOB, N/V, cough, diaphoresis or other complains. As per nurse report she was given 4 times SL spray Nitro in the field by EMS. Dr. Jimenez ( [place]) (Erica Sharma) Supervising Attending Note - Supervising Attending Note The Documented history was done by the: Physician Crystalizer Tender, Attending Physician The documented physical exam was done by the: Physician Crystalizer Tender, Attending Physician The documented procedures were done by the: Physician Crystalizer Tender, Attending Physician - Attestation: I have personally seen and examined this patient.: Yes I have fully participated in the care of the patient.: Yes I have reviewed all pertinent clinical information: Yes <Jim Chase Fabi - Last Filed: 06/25/18 19:11> Past Medical History - Medical History PMH: CVA (x2), Diabetes, HTN, Hypercholesterolemia, Hypothyroidism Denies: Chronic Kidney Disease - Surgical History Surgical History: Tonsillectomy - Family History Family History: States: Unknown Family Hx <[email or web address] - Last Filed: 06/25/18 04:01> <[email or web address] Dunlap - Last Filed: 06/25/18 19:11> Vital Signs: Last Vital Signs Temp 98 F 06/25/18 12:16 Pulse 99 H 06/25/18 12:16 Resp 18 06/25/18 12:16 BP 119/78 06/25/18 12:16 Pulse Ox 96 06/25/18 12:16 - Home Medications Home Medications: Ambulatory Orders Medication Instructions Recorded Allopurinol [Zyloprim] 300 mg PO HS 06/25/18 Atorvastatin [Lipitor] 40 mg PO DAILY 06/25/18 Calcitriol [Rocaltrol] 0.25 mcg PO DAILY 06/25/18 Cholecalciferol (Vitamin D3) 1.25 mg PO QWK 06/25/18 [Vitamin D3] Clopidogrel [Plavix] 75 mg PO DAILY 06/25/18 Donepezil HCl [Aricept] 10 mg PO HS 06/25/18 Glimepiride [amaRYL] 4 mg PO BID 06/25/18 Hydrochlorothiazide [Microzide] 12.5 mg PO DAILY 06/25/18 Icosapent Ethyl [Vascepa] 2 cap PO BID 06/25/18 Insulin Regular [HumuLIN R] 14 units SC QAM 06/25/18 Levothyroxine [Synthroid] 75 mcg PO DAILY 06/25/18 Memantine [Namenda] 10 mg PO BID 06/25/18 QUEtiapine [SEROquel] 100 mg PO HS 06/25/18 SITagliptin [Januvia] 100 mg PO DAILY 06/25/18 - Allergies Allergies/Adverse Reactions: Allergies Allergy/AdvReac Type Severity Reaction Status Date / Time aspirin Allergy ANAPHYLAXIS Verified 05/28/18 20:26 Penicillins Allergy ANAPHYLAXIS Verified 05/28/18 20:26 shrimp AdvReac ANAPHYLAXIS Verified 05/28/18 20:26 BRANDIE Risk Score for UA/NSTEMI - BRANDIE Risk Score Age > 64: YES 3 or more CAD Risk Factors: YES Known CAD (Stenosis greater than 50%): NO Aspirin use in past 7 days: NO EKG ST changes greater than 0.5mm: NO BRANDIE Score: 2 Risk %: 8% <Erica Sharma - Last Filed: 06/25/18 04:01> Curb-65 Severity Score - CURB-65 Severity Score Confusion: No Bun >19mg/dl (>7mmol/L): Yes Respiratory Rate greater than/equal to 30: No Systolic BP <90 or Diastolic BP less than/equal 60mmHg: No Age >64: Yes Curb-65 Score: 2 Percentage 30-day mortality: 6.8% <Erica Sharma - Last Filed: 06/25/18 04:01> Wells Criteria for PE - Wells Criteria for Pulmonary Embolism Clinical Signs and Symptoms of DVT: No P.E is #1 Diagnosis, or Equally Likely: No Heart Rate >100: Yes Immobilization at least 3 days;Surgery previous 4 weeks: No Previous, objectively diagnosed PE or DVT: No Hemoptysis: No Malignancy w/treatment within 6 months, or palliative: No Total Score: 1.5 <Erica Sharma - Last Filed: 06/25/18 04:01> Review of Systems ROS Statement: Except As Marked, All Systems Reviewed And Found Negative (as per HPI) <Erica Sharma - Last Filed: 06/25/18 04:01> Physical Exam - Reviewed Nursing Documentation Reviewed: Yes Vital Signs Reviewed: Yes - Physical Exam Appears: Positive for: Non-toxic, No Acute Distress Head Exam: Positive for: ATRAUMATIC, NORMOCEPHALIC Skin: Positive for: Normal Color, Warm, Dry. Negative for: Diaphoresis, Pallor , Rash Eye Exam: Positive for: Normal appearance Cardiovascular/Chest: Positive for: Regular Rate, Rhythm. Negative for: Bradycardia Respiratory: Positive for: Normal Breath Sounds. Negative for: Crackles, Rales , Rhonchi, Stridor, Wheezing, Respiratory Distress Gastrointestinal/Abdominal: Positive for: Bowel Sounds (normal), Soft. Negative for: Tenderness, Distended, Guarding Back: Positive for: Normal Inspection. Negative for: L CVA Tenderness, R CVA Tenderness Extremity: Negative for: Tenderness, Pedal Edema, Calf Tenderness Neurologic/Psych: Positive for: Alert, Oriented <Erica Sharam - Last Filed: 06/25/18 04:01> - Laboratory Results Result Diagrams: 06/25/18 01:06 06/25/18 01:06 - ECG O2 Sat by Pulse Oximetry: 99 <Erica Sharma - Last Filed: 06/25/18 04:01> - Laboratory Results Result Diagrams: 06/25/18 01:06 06/25/18 01:06 - Critical Care Total Time (In Min): 30 <Jim Chase - Last Filed: 06/25/18 19:11> Medical Decision Making <Erica Sharma - Last Filed: 06/25/18 04:01> <Jim Chase - Last Filed: 06/25/18 19:11> Medical Decision Making: Chest pain -risk factors for ACS -EKG in ER showed SNR, with no acute ST-T waves changes -CBC, CMP, troponin I x 1 -CXR -NItro SL 0.4 mg once -PLavix 75 mg PO once -re-evaluation Case was discussed with Dr. Chase Re-evaluation -chest pain improved after Nitro SL, but after 5 mins came back -CBC unremarkable -CMP significant for mild elevated BUN/Cr:25/1.5 -Troponin I x 1 negative -given Morphine 2 g IV once -decision was made to admit for obs and r/o ACS. Labs results discussed with patient and family, as well as the needed for admission to r/o ACS. They verbalized understanding and agreed with plan. Patient will be admitted under Dr. Pinedo service (Erica Sharma) 0630 Discussed the case with Dr Gross who will see patient in am. (Jim Chase) Disposition - Patient ED Disposition Is Patient to be Admitted: Yes Discussed With : Jim Chase - Disposition Disposition Time: 02:21 <Erica Sharma - Last Filed: 06/25/18 04:01> Discussed With DrKorey: Philippe Mendez Doctor Will See Patient In The: Hospital Counseled Patient/Family Regarding: Studies Performed, Diagnosis - Pt Status Changed To: Hospital Disposition Of: Inpatient - Admit Certification Admit to Inpatient:: After my assessment, the patient will require hospitalization for at least two midnights. This is because of the severity of symptoms shown, intensity of services needed, and/or the medical risk in this patient being treated as an outpatient. - POA Present On Arrival: None Core Measure Indicators: Chest Pain <Jim Chase - Last Filed: 06/25/18 19:11> - Clinical Impression Clinical Impression: Chest pain - Disposition Condition: FAIR
[2018-06-25 01:24] LABS: BASO % 0.6 % (0.0-2.0); EOS # 0.1 K/uL (0.0-0.7); EOS % 0.9 % (0.0-4.0); HEMOGLOBIN 13.3 g/dL (12.0-16.0); LYMPH # 1.9 K/uL (1.0-4.3); LYMPH % 23.5 % (20.0-40.0); MEAN CELL VOLUME 90.5 fl (81.0-99.0); MEAN CORPUSCULAR HGB CONC 33.2 g/dL (33.0-37.0); MEAN PLATELET VOLUME 10.5 fl (7.2-11.7); MONO # 0.7 K/uL (0.0-0.8); NEUT # 5.6 K/uL (1.8-7.0); RBC 4.44 Mil/uL (3.80-5.20); RED CELL DISTRIBUTION WIDTH 15.4 % (11.5-14.5); WHITE BLOOD COUNT 8.3 K/uL (4.8-10.8)
[2018-06-25 01:35] LABS: ALB/GLOB RATIO 1.4 (1.0-2.1); ALBUMIN 4.1 g/dL (3.5-5.0); CALCIUM 9.6 mg/dL (8.4-10.2)
[2018-06-25 01:44] LABS: TROPONIN I 0.079 ng/mL (0.00-0.120)
[2018-06-25] MEDS ORDERED: Enoxaparin 80 mg Syringe SC STA (03:25)
[2018-06-25] MEDS ORDERED: Nitroglycerin 50mg in D5W 50 MG/250 ML BOTTLE IV ONE ×2 (03:27→03:52)
[2018-06-25 03:58] LABS: PARTIAL THROMBOPLASTIN TIME 33.7 Seconds (25.6-37.1); PROTHROMBIN TIME 10.6 Seconds (9.8-13.1)
[2018-06-25] MEDS: Levothyroxine 75 MCG TAB PO SCH (05:49)
[2018-06-25] MEDS: GlipiZIDE 10 mg SR Tab PO SCH ×2 (09:19→17:44)
--- NOTE | 2018-06-25 09:23 | RAD ---
Date of service: 06/25/2018 HISTORY: chest pain COMPARISON: Chest radiograph dated 05/28/2018. FINDINGS: LUNGS: No active pulmonary disease. PLEURA: No significant pleural effusion identified, no pneumothorax apparent. CARDIOVASCULAR: Cardiomediastinal silhouette stably prominent. OSSEOUS STRUCTURES: Unchanged. VISUALIZED UPPER ABDOMEN: Normal. OTHER FINDINGS: None. IMPRESSION: No active disease.
[2018-06-25] MEDS: Heparin 25,000units in D5W 25,000 UNITS/250 ML BAG IV SCH (12:57)
--- NOTE | 2018-06-25 13:44 | CP.PCM.CON ---
History of Present Illness - History of Present Illness History of Present Illness: 72 y/o F with h/o HTN, DM, Stroke x 2, possible TIA presents complaining of middle chest pain. Denies association with SOB, N/V, cough, diaphoresis or other complains. As per nurse report she was given 4 times SL spray Nitro in the field by EMS. denies abdominal pain or fever + troponins on second set ACS protocol in progress on IV Heparin drip Past Medical History Vital Signs: Last Vital Signs Temp 98.5 F 06/25/18 00:31 Pulse 104 H 06/25/18 01:06 Resp 16 06/25/18 01:06 BP 129/89 06/25/18 01:06 Pulse Ox 99 06/25/18 01:59 - Medical History PMH: CVA (x2), Diabetes, HTN, Hypercholesterolemia, Hypothyroidism Denies: Chronic Kidney Disease - Surgical History Surgical History: Tonsillectomy - Family History Family History: States: Unknown Family Hx - Home Medications Home Medications: Ambulatory Orders Medication Instructions Recorded QUEtiapine [Seroquel] 1 tab PO HS 02/06/18 SITagliptin [Januvia] 1 tab PO DAILY 02/06/18 Allopurinol [Zyloprim] 30 mg PO DAILY 05/28/18 Calcitriol [Rocaltrol] 0.25 mcg PO DAILY 05/28/18 Cholecalciferol [Vitamin D 1000 IU] 1,000 units PO DAILY 05/28/18 Donepezil [Aricept] 10 mg PO DAILY 05/28/18 Glimepiride [amaRYL] 4 mg PO BID 05/28/18 Hydrochlorothiazide [Microzide] 12.5 mg PO DAILY 05/28/18 Icosapent Ethyl [Vascepa] 0.5 gm PO DAILY 05/28/18 Isosorbide Dinitrate 30 mg PO DAILY 05/28/18 Levothyroxine [Synthroid] 75 mcg PO DAILY 05/28/18 Memantine [Namenda] 10 mg PO DAILY 05/28/18 Atorvastatin [Lipitor] 10 mg PO DAILY #30 tab 05/30/18 Clopidogrel [Plavix] 75 mg PO DAILY #30 tab 05/30/18 - Allergies Allergies/Adverse Reactions: Allergies Allergy/AdvReac Type Severity Reaction Status Date / Time aspirin Allergy ANAPHYLAXIS Verified 05/28/18 20:26 Penicillins Allergy ANAPHYLAXIS Verified 05/28/18 20:26 shrimp AdvReac ANAPHYLAXIS Verified 05/28/18 20:26 Review of Systems - Review of Systems All systems: reviewed and no additional remarkable complaints except - Constitutional Constitutional: As Per HPI - EENT Eyes: absent: As Per HPI, Blind Spots, Blurred Vision, Change in Vision, Decreased Night Vision, Diplopia, Discharge, Dry Eye, Exophthalmos, Floaters, Irritation, Itchy Eyes, Loss of Peripheral Vision, Pain, Photophobia, Requires Corrective Lenses, Sees Flashes, Spots in Vision, Tunnel Vision, Other Visual Disturbances, Loss of Vision, Other Ears: absent: As Per HPI, Decreased Hearing, Ear Discharge, Ear Pain, Tinnitus, Abnormal Hearing, Disequilibrium, Dizziness, Other Nose/Mouth/Throat: absent: As Per HPI, Epistaxis, Nasal Congestion, Nasal Discharge, Nasal Obstruction, Nasal Trauma, Nose Pain, Post Nasal Drip, Sinus Pain, Sinus Pressure, Bleeding Gums, Change in Voice, Dental Pain, Dry Mouth, Dysphagia, Halitosis, Hoarsness, Lip Swelling, Mouth Lesions, Mouth Pain, Odynophagia, Sore Throat, Throat Swelling, Tongue Swelling, Facial Pain, Neck Pain, Neck Mass, Other - Breasts Breasts: absent: As Per HPI, Change in Shape, Mass, Pain, Nipple Discharge, Nipple Inversion, Skin Changes, Swelling, Other - Cardiovascular Cardiovascular: As Per HPI - Respiratory Respiratory: absent: As Per HPI, Cough, Dyspnea, Hemoptysis, Dyspnea on Exertion , Wheezing, Snoring, Stridor, Pain on Inspiration, Chest Congestion, Excessive Mucous Production, Change in Mucous Color, Pain with Coughing, Other - Gastrointestinal Gastrointestinal: absent: As Per HPI, Abdominal Pain, Belching, Bloating, Change in Bowel Habits, Change in Stool Character, Coffee Ground Emesis, Constipation, Cramping, Diarrhea, Dyspepsia, Dysphagia, Early Satiety, Excessive Flatus, Fecal Incontinence, Heartburn, Hematemesis, Hematochezia, Loose Stools, Melena, Nausea, Odynophagia, Temesmus, Vomiting, Other - Genitourinary Genitourinary: absent: As Per HPI, Change in Urinary Stream, Difficulty Urinating, Dysuria, Flank Pain, Hematuria, Pyuria, Nocturia, Urinary Incontinence, Urinary Frequency, Urinary Hesitance, Urinary Urgency, Voiding Freq/Small Amts, Freq UTI, Hx Renal/Bladder Calculi, Hx /Renal Surgery, Bladder Distension, Other - Reproductive: Female Reproductive:Female: absent: As Per HPI, Amenorrhea, Amenorrhea/ Control, Currently Menstual, Cycle <21 Days, Cycle >35 Days, Cycle Variable, Menses 1-7 Days, Menses >/= 8 Days, Menses Variable, Cycle > 4 Weeks Between, No Menses for 6 Months, Heavy Menses, Light Menses, Normal Menses, Spotting Between Cycles , S/P Hysterectomy, Menopausal, Post Menopausal, Premenarche, Abnormal Vaginal Bleeding, Dysmenorrhea, Dyspareunia, Genital Lesions, Genital Pruritis, Pelvic Pain, Prolapse Symptoms, Sexual Dysfunction, Vaginal Discharge, Vaginal Dryness , Vaginal Odor, Vaginal Pruritis, Other - Menstruation Menstruation: absent: As Per HPI, Amenorrhea, Amenorrhea/ Control, Currently Menstual, Cycle <21 Days, Cycle >35 Days, Cycle Variable, Menses 1-7 Days, Menses >/= 8 Days, Menses Variable, Cycle > 4 Weeks Between, No Menses for 6 Months, Heavy Menses, Light Menses, Normal Menses, Spotting Between Cycles , S/P Hysterectomy, Menopausal, Post Menopausal, Premenarche, Abnormal Vaginal Bleeding, Dysmenorrhea, Other - Musculoskeletal Musculoskeletal: absent: As Per HPI, Abnormal Gait, Arthralgias, Atrophy, Back Pain, Deformity, Joint Swelling, Limited Range of Motion, Loss of Height, Muscle Cramps, Muscle Weakness, Myalgias, Neck Pain, Numbness, Radiating Pain into Limb, Stiffness, Tingling, Other - Integumentary Integumentary: absent: As Per HPI, Acne, Alopecia, Bleeding Lesions, Change in Hair, Change in Nails, Change in Pigmentation, Changing Lesions, Dry Skin, Erythema, Furuncle, Hirsutism, Lesions, New Lesions, Non-Healing Lesions, Photosensitivity, Pruritus, Rash, Skin Pain, Skin Ulcer, Sores, Striae, Swelling , Unusual Bruising, Wounds, Jaundice, Other - Neurological Neurological: absent: As Per HPI, Abnormal Gait, Abnormal Hearing, Abnormal Movements, Abnormal Speech, Behavioral Changes, Burning Sensations, Confusion, Convulsions, Disequilibrium, Dizziness, Numbness, Focal Weakness, Frequent Falls , Headaches, Lack of Coordination, Loss of Vision, Memory Loss, Paresthesias, Radicular Pain, Restless Legs, Sensory Deficit, Syncope, Tingling, Tremor, Vertigo, Weakness, Other Visual Disturbances, Other - Psychiatric Psychiatric: absent: As Per HPI, Abnormal Sleep Pattern, Anhedonia, Anxiety, Auditory Hallucinations, Behavioral Changes, Change in Appetite, Change in Libido, Confusion, Depression, Difficulty Concentrating, Hallucinations, Homicidal Ideation, Hopelessness, Irritability, Memory Loss, Mood Swings, Panic Attacks, Paranoia, Suicidal Ideation, Visual Hallucinations, Tactile Hallucinations, Other - Endocrine Endocrine: absent: As Per HPI, Change in Body Appearance, Change in Libido, Cold Intolorance, Deepening of Voice, Excessive Sweating, Fatigue, Flushing, Heat Intolorance, Increase in Ring/Shoe/Hat Size, Palpitations, Polydipsia, Polyphagia, Polyuria, Other - Hematologic/Lymphatic Hematologic: absent: As Per HPI, Easy Bleeding, Easy Bruising, Lymphadenopathy, Other Past Patient History - Past Medical History & Family History Past Medical History?: Yes - Past Social History Smoking Status: Former Smoker - CARDIAC Hx Cardiac Disorders: Yes (HTN, high chol) - PULMONARY Hx Respiratory Disorders: No - NEUROLOGICAL Hx Neurological Disorder: Yes (CVA x2 and TIA) - HEENT Hx HEENT Problems: No - RENAL Hx Chronic Kidney Disease: No - ENDOCRINE/METABOLIC Hx Endocrine Disorders: Yes (DM, hypothyroid) - HEMATOLOGICAL/ONCOLOGICAL Hx Blood Disorders: No - INTEGUMENTARY Hx Dermatological Problems: No - MUSCULOSKELETAL/RHEUMATOLOGICAL Hx Musculoskeletal Disorders: No - GASTROINTESTINAL Hx Gastrointestinal Disorders: No - GENITOURINARY/GYNECOLOGICAL Hx Genitourinary Disorders: No - PSYCHIATRIC Hx Psychophysiologic Disorder: No - SURGICAL HISTORY Hx Surgeries: Yes Hx Tonsillectomy: Yes - ANESTHESIA Hx Anesthesia: Yes Hx Anesthesia Reactions: No Hx Malignant Hyperthermia: No Meds Allergies/Adverse Reactions: Allergies Allergy/AdvReac Type Severity Reaction Status Date / Time aspirin Allergy ANAPHYLAXIS Verified 05/28/18 20:26 Penicillins Allergy ANAPHYLAXIS Verified 05/28/18 20:26 shrimp AdvReac ANAPHYLAXIS Verified 05/28/18 20:26 - Medications Medications: Current Medications Atorvastatin Calcium (Lipitor) 10 mg PO DAILY [facility] Last Admin: 06/25/18 09:19 Dose: 10 mg Glipizide (Glucotrol Xl) 10 mg PO BRKDIN [facility] Last Admin: 06/25/18 09:19 Dose: 10 mg Hydrochlorothiazide (Microzide) 12.5 mg PO DAILY [facility] Last Admin: 06/25/18 09:19 Dose: 12.5 mg Nitroglycerin/Dextrose (Nitroglycerin 50 Mg/250 Ml D5w) 50 mg in 250 mls @ 1.5 mls/hr IV .Q24H ONE; 5 MCG/MIN PRN Reason: Protocol Stop: 06/26/18 03:26 Last Admin: 06/25/18 04:28 Dose: 1.5 mls/hr Heparin Sodium/Dextrose (Heparin 25,000 Units/250ml In D5w) 25,000 units in 250 mls @ 10 mls/hr IV .Q24H TERESO PRN Reason: Protocol Stop: 06/27/18 12:14 Last Admin: 06/25/18 12:57 Dose: 10 mls/hr Isosorbide Dinitrate (Isordil) 30 mg PO DAILY [facility] Last Admin: 06/25/18 09:20 Dose: 30 mg Levothyroxine Sodium (Synthroid) 75 mcg PO DAILY@0630 [facility] Last Admin: 06/25/18 05:49 Dose: 75 mcg Memantine (Namenda) 10 mg PO DAILY [facility] Last Admin: 06/25/18 09:19 Dose: 10 mg Sitagliptin Phosphate (Januvia) 100 mg PO DAILY [facility] Last Admin: 06/25/18 09:19 Dose: 100 mg Physical Exam - Constitutional Appears: Non-toxic, Chronically Ill - Head Exam Head Exam: NORMOCEPHALIC - Eye Exam Eye Exam: PERRL - ENT Exam ENT Exam: Mucous Membranes Dry - Neck Exam Neck exam: Negative for: Lymphadenopathy - Respiratory Exam Respiratory Exam: Decreased Breath Sounds - Cardiovascular Exam Cardiovascular Exam: REGULAR RHYTHM - GI/Abdominal Exam GI & Abdominal Exam: Diminished Bowel Sounds, Distended - Rectal Exam Rectal Exam: Deferred - Exam Exam: NORMAL INSPECTION - Extremities Exam Extremities exam: Negative for: pedal edema - Back Exam Back exam: absent: CVA tenderness (L), CVA tenderness (R) - Neurological Exam Neurological exam: Alert, CN II-XII Intact, Oriented x3, Reflexes Normal - Psychiatric Exam Psychiatric exam: Normal Mood - Skin Skin Exam: Dry Results - Vital Signs Recent Vital Signs: Last Vital Signs Temp 98 F 06/25/18 12:16 Pulse 99 H 06/25/18 12:16 Resp 18 06/25/18 12:16 BP 119/78 06/25/18 12:16 Pulse Ox 96 06/25/18 12:16 - Labs Result Diagrams: 06/25/18 01:06 06/25/18 01:06 Labs: Laboratory Results - last 24 hr 06/25/18 06/25/18 06/25/18 01:06 01:06 02:49 WBC 8.3 RBC 4.44 Hgb 13.3 Hct 40.2 MCV 90.5 MCH 30.0 MCHC 33.2 RDW 15.4 H Plt Count 165 MPV 10.5 Neut % (Auto) 67.0 Lymph % (Auto) 23.5 [place] % (Auto) 8.0 Eos % (Auto) 0.9 Baso % (Auto) 0.6 Neut # (Auto) 5.6 Lymph # (Auto) 1.9 [place] # (Auto) 0.7 Eos # (Auto) 0.1 Baso # (Auto) 0.0 PT 10.6 INR 1.0 APTT 33.7 Sodium 142 Potassium 4.2 Chloride 105 Carbon Dioxide 26 Anion Gap 15 BUN 25 H Creatinine 1.5 H Est GFR ( Amer) 42 Est GFR (Non-Af Amer) 34 POC Glucose (mg/dL) Random Glucose 141 H Hemoglobin A1c Calcium 9.6 Total Bilirubin 0.4 AST 32 ALT 38 Alkaline Phosphatase 106 Troponin I 0.0790 Total Protein 7.0 Albumin 4.1 Globulin 2.9 Albumin/Globulin Ratio 1.4 Vitamin B12 TSH 3rd Generation 06/25/18 06/25/18 06/25/18 05:30 07:50 07:50 WBC RBC Hgb Hct MCV MCH MCHC RDW Plt Count MPV Neut % (Auto) Lymph % (Auto) [place] % (Auto) Eos % (Auto) Baso % (Auto) Neut # (Auto) Lymph # (Auto) [place] # (Auto) Eos # (Auto) Baso # (Auto) PT INR APTT Sodium Potassium Chloride Carbon Dioxide Anion Gap BUN Creatinine Est GFR ( Amer) Est GFR (Non-Af Amer) POC Glucose (mg/dL) 212 H Random Glucose Hemoglobin A1c Calcium Total Bilirubin AST ALT Alkaline Phosphatase Troponin I 2.4800 H* Total Protein Albumin Globulin Albumin/Globulin Ratio Vitamin B12 580 TSH 3rd Generation 2.13 06/25/18 06/25/18 07:50 11:11 WBC RBC Hgb Hct MCV MCH MCHC RDW Plt Count MPV Neut % (Auto) Lymph % (Auto) [place] % (Auto) Eos % (Auto) Baso % (Auto) Neut # (Auto) Lymph # (Auto) [place] # (Auto) Eos # (Auto) Baso # (Auto) PT INR APTT Sodium Potassium Chloride Carbon Dioxide Anion Gap BUN Creatinine Est GFR ( Amer) Est GFR (Non-Af Amer) POC Glucose (mg/dL) 154 H Random Glucose Hemoglobin A1c 8.8 H Calcium Total Bilirubin AST ALT Alkaline Phosphatase Troponin I Total Protein Albumin Globulin Albumin/Globulin Ratio Vitamin B12 TSH 3rd Generation Assessment & Plan (1) Chest pain Status: Acute (2) Dyslipidemia Status: Acute (3) HTN (hypertension) Status: Acute - Assessment and Plan (Free Text) Assessment: cont ACS protocol no indication for IV antibiotics at present
--- NOTE | 2018-06-25 18:54 | HP ---
CHIEF COMPLAINT: Chest pain. HISTORY OF PRESENT ILLNESS This is a 72-year-old female, known case of hypertension and diabetes, COPD, morbid obesity, hypothyroidism, history of CVA in the past, was having on and off chest pain which relieved on nitro but came back, so the patient was brought to the emergency room and was admitted for further management. REVIEW OF SYSTEMS: Positive for chest pain. Review of systems otherwise is negative for headache, dizziness, syncope, loss of consciousness, nausea, vomiting, diarrhea, constipation, or any new joint or extremity pain. Review of systems of all other organ system is unremarkable. PAST MEDICAL HISTORY: Significant for diabetes, hypertension, elevated cholesterol, hypothyroidism, obesity, CVA x2. PAST SURGICAL HISTORY: Remarkable for tonsil surgery. PERSONAL HISTORY: The patient is currently nonsmoker, nondrinker, no substance abuse. MEDICATIONS: The patient is on multiple medications including Seroquel, Januvia, Zyloprim, Rocaltrol, vitamin D, Aricept, Amaryl, Microzide, Septra, Lipitor, Namenda, Plavix, and Synthroid. ALLERGIES: THE PATIENT IS ALLERGIC TO ASPIRIN, PENICILLIN, AND SHRIMP. FAMILY HISTORY: Noncontributory. PHYSICAL EXAMINATION: GENERAL: Well-built, well-nourished, overweight 72-year-old female in no acute distress. VITAL SIGNS: Temperature showed afebrile, pulse 78, respirations 18, blood pressure 122/76, saturation 97%. HEENT: Pupils reacting to light. No JVD. No thyromegaly. No lymphadenopathy. No nystagmus. Normocephalic, atraumatic skull. HEART: S1 and S2. Normal, regular. No significant murmur, gallop, or rub is heard. LUNGS: Good bilateral air exchange. No rales or rhonchi. ABDOMEN: Soft, nontender. No organomegaly. No fluid. Bowel sounds are plus and normal. EXTREMITIES: No edema. No calf swelling. No tenderness. No acute ischemia. NURSING RESIDENT: Exam is essentially unchanged. DIAGNOSTIC DATA: Available diagnostic data reviewed. WBC 8.3, hemoglobin 13.3, hematocrit 40.2, platelets 165. SMA-12 shows BUN 25, creatinine 1.5. Otherwise, everything is unremarkable. Troponin one set is negative. Chest x-ray is clear. EKG shows normal sinus rhythm. No acute ST-T changes are appreciated. ADMITTING IMPRESSION: Chest pain, rule out acute coronary syndrome, hypertension, elevated cholesterol, type 2 diabetes. PLAN: As ordered. Telemetry monitoring does not show significant arrhythmia. Sanjay Pinedo MD
--- NOTE | 2018-06-26 00:26 | CP.PCM.CON ---
History of Present Illness - History of Present Illness History of Present Illness: Consutation for evaluation of chest pain / NSTEMI HPI: 72 year old female with hx of HTN, DM, CVA presenting with c/o chest pains that started tuesday night and resolve on its own. Then she had recurrent episode of chest pain on tuesday described as pressure like sensation accompanied with SOB. +ve TnI , EKG - nonspecific. Review of Systems - Review of Systems Systems not reviewed;Unavailable: Acuity of Condition - Constitutional Constitutional: As Per HPI - EENT Eyes: As Per HPI Ears: As Per HPI Nose/Mouth/Throat: As Per HPI - Breasts Breasts: As Per HPI - Cardiovascular Cardiovascular: As Per HPI - Respiratory Respiratory: As Per HPI - Gastrointestinal Gastrointestinal: As Per HPI - Genitourinary Genitourinary: As Per HPI - Reproductive: Female Reproductive:Female: As Per HPI - Menstruation Menstruation: As Per HPI - Musculoskeletal Musculoskeletal: As Per HPI - Integumentary Integumentary: As Per HPI - Neurological Neurological: As Per HPI - Psychiatric Psychiatric: As Per HPI - Endocrine Endocrine: As Per HPI - Hematologic/Lymphatic Hematologic: As Per HPI Past Patient History - Past Medical History & Family History Past Medical History?: Yes - Past Social History Smoking Status: Former Smoker - CARDIAC Hx Cardiac Disorders: Yes (HTN, high chol) - PULMONARY Hx Respiratory Disorders: No - NEUROLOGICAL Hx Neurological Disorder: Yes (CVA x2 and TIA) - HEENT Hx HEENT Problems: No - RENAL Hx Chronic Kidney Disease: No - ENDOCRINE/METABOLIC Hx Endocrine Disorders: Yes (DM, hypothyroid) - HEMATOLOGICAL/ONCOLOGICAL Hx Blood Disorders: No - INTEGUMENTARY Hx Dermatological Problems: No - MUSCULOSKELETAL/RHEUMATOLOGICAL Hx Musculoskeletal Disorders: No - GASTROINTESTINAL Hx Gastrointestinal Disorders: No - GENITOURINARY/GYNECOLOGICAL Hx Genitourinary Disorders: No - PSYCHIATRIC Hx Psychophysiologic Disorder: No - SURGICAL HISTORY Hx Surgeries: Yes Hx Tonsillectomy: Yes - ANESTHESIA Hx Anesthesia: Yes Hx Anesthesia Reactions: No Hx Malignant Hyperthermia: No Meds Allergies/Adverse Reactions: Allergies Allergy/AdvReac Type Severity Reaction Status Date / Time aspirin Allergy ANAPHYLAXIS Verified 05/28/18 20:26 Penicillins Allergy ANAPHYLAXIS Verified 05/28/18 20:26 shrimp AdvReac ANAPHYLAXIS Verified 05/28/18 20:26 - Medications Medications: Current Medications Atorvastatin Calcium (Lipitor) 10 mg PO DAILY [facility] Last Admin: 06/25/18 09:19 Dose: 10 mg Glipizide (Glucotrol Xl) 10 mg PO BRKDIN [facility] Last Admin: 06/25/18 17:44 Dose: 10 mg Hydrochlorothiazide (Microzide) 12.5 mg PO DAILY [facility] Last Admin: 06/25/18 09:19 Dose: 12.5 mg Nitroglycerin/Dextrose (Nitroglycerin 50 Mg/250 Ml D5w) 50 mg in 250 mls @ 1.5 mls/hr IV .Q24H ONE; 5 MCG/MIN PRN Reason: Protocol Stop: 06/26/18 03:26 Last Admin: 06/25/18 04:28 Dose: 1.5 mls/hr Heparin Sodium/Dextrose (Heparin 25,000 Units/250ml In D5w) 25,000 units in 250 mls @ 10 mls/hr IV .Q24H [facility] PRN Reason: Protocol Stop: 06/27/18 12:14 Last Titration: 06/25/18 22:03 Dose: 8 mls/hr Isosorbide Dinitrate (Isordil) 30 mg PO DAILY [facility] Last Admin: 06/25/18 09:20 Dose: 30 mg Levothyroxine Sodium (Synthroid) 75 mcg PO DAILY@0630 [facility] Last Admin: 06/25/18 05:49 Dose: 75 mcg Memantine (Namenda) 10 mg PO DAILY [facility] Last Admin: 06/25/18 09:19 Dose: 10 mg Sitagliptin Phosphate (Januvia) 100 mg PO DAILY [facility] Last Admin: 06/25/18 09:19 Dose: 100 mg Physical Exam - Constitutional Appears: Well - Head Exam Head Exam: ATRAUMATIC, NORMAL INSPECTION, NORMOCEPHALIC - Eye Exam Eye Exam: EOMI, Normal appearance, PERRL Pupil Exam: NORMAL ACCOMODATION, PERRL - ENT Exam ENT Exam: Mucous Membranes Moist, Normal Exam - Neck Exam Neck exam: Positive for: Normal Inspection - Respiratory Exam Respiratory Exam: Clear to Auscultation Bilateral, NORMAL BREATHING PATTERN - Cardiovascular Exam Cardiovascular Exam: REGULAR RHYTHM - GI/Abdominal Exam GI & Abdominal Exam: Normal Bowel Sounds, Soft. absent: Tenderness - Extremities Exam Extremities exam: Positive for: normal inspection - Back Exam Back exam: NORMAL INSPECTION - Neurological Exam Neurological exam: Alert, CN II-XII Intact, Normal Gait, Oriented x3, Reflexes Normal - Psychiatric Exam Psychiatric exam: Normal Affect, Normal Mood - Skin Skin Exam: Dry, Intact, Normal Color, Warm Results - Vital Signs Recent Vital Signs: Last Vital Signs Temp 98.6 F 06/26/18 00:20 Pulse 90 06/26/18 00:20 Resp 18 06/26/18 00:20 BP 134/88 06/26/18 00:20 Pulse Ox 97 06/26/18 00:20 - Labs Result Diagrams: 06/25/18 01:06 06/25/18 01:06 Labs: Laboratory Results - last 24 hr 06/25/18 06/25/18 06/25/18 01:06 01:06 02:49 WBC 8.3 RBC 4.44 Hgb 13.3 Hct 40.2 MCV 90.5 MCH 30.0 MCHC 33.2 RDW 15.4 H Plt Count 165 MPV 10.5 Neut % (Auto) 67.0 Lymph % (Auto) 23.5 [place] % (Auto) 8.0 Eos % (Auto) 0.9 Baso % (Auto) 0.6 Neut # (Auto) 5.6 Lymph # (Auto) 1.9 [place] # (Auto) 0.7 Eos # (Auto) 0.1 Baso # (Auto) 0.0 PT 10.6 INR 1.0 APTT 33.7 Sodium 142 Potassium 4.2 Chloride 105 Carbon Dioxide 26 Anion Gap 15 BUN 25 H Creatinine 1.5 H Est GFR ( Amer) 42 Est GFR (Non-Af Amer) 34 POC Glucose (mg/dL) Random Glucose 141 H Hemoglobin A1c Calcium 9.6 Total Bilirubin 0.4 AST 32 ALT 38 Alkaline Phosphatase 106 Troponin I 0.0790 Total Protein 7.0 Albumin 4.1 Globulin 2.9 Albumin/Globulin Ratio 1.4 Vitamin B12 TSH 3rd Generation 06/25/18 06/25/18 06/25/18 05:30 07:50 07:50 WBC RBC Hgb Hct MCV MCH MCHC RDW Plt Count MPV Neut % (Auto) Lymph % (Auto) [place] % (Auto) Eos % (Auto) Baso % (Auto) Neut # (Auto) Lymph # (Auto) [place] # (Auto) Eos # (Auto) Baso # (Auto) PT INR APTT Sodium Potassium Chloride Carbon Dioxide Anion Gap BUN Creatinine Est GFR ( Amer) Est GFR (Non-Af Amer) POC Glucose (mg/dL) 212 H Random Glucose Hemoglobin A1c Calcium Total Bilirubin AST ALT Alkaline Phosphatase Troponin I 2.4800 H* Total Protein Albumin Globulin Albumin/Globulin Ratio Vitamin B12 580 TSH 3rd Generation 2.13 06/25/18 06/25/18 06/25/18 07:50 11:11 16:07 WBC RBC Hgb Hct MCV MCH MCHC RDW Plt Count MPV Neut % (Auto) Lymph % (Auto) [place] % (Auto) Eos % (Auto) Baso % (Auto) Neut # (Auto) Lymph # (Auto) [place] # (Auto) Eos # (Auto) Baso # (Auto) PT INR APTT Sodium Potassium Chloride Carbon Dioxide Anion Gap BUN Creatinine Est GFR ( Amer) Est GFR (Non-Af Amer) POC Glucose (mg/dL) 154 H 160 H Random Glucose Hemoglobin A1c 8.8 H Calcium Total Bilirubin AST ALT Alkaline Phosphatase Troponin I Total Protein Albumin Globulin Albumin/Globulin Ratio Vitamin B12 TSH 3rd Generation 06/25/18 06/25/18 06/25/18 16:10 19:10 21:02 WBC RBC Hgb Hct MCV MCH MCHC RDW Plt Count MPV Neut % (Auto) Lymph % (Auto) [place] % (Auto) Eos % (Auto) Baso % (Auto) Neut # (Auto) Lymph # (Auto) [place] # (Auto) Eos # (Auto) Baso # (Auto) PT INR APTT 11.7 L D 88.8 H D Sodium Potassium Chloride Carbon Dioxide Anion Gap BUN Creatinine Est GFR ( Amer) Est GFR (Non-Af Amer) POC Glucose (mg/dL) Random Glucose Hemoglobin A1c Calcium Total Bilirubin AST ALT Alkaline Phosphatase Troponin I 13.2000 H* Total Protein Albumin Globulin Albumin/Globulin Ratio Vitamin B12 TSH 3rd Generation 06/25/18 21:05 WBC RBC Hgb Hct MCV MCH MCHC RDW Plt Count MPV Neut % (Auto) Lymph % (Auto) [place] % (Auto) Eos % (Auto) Baso % (Auto) Neut # (Auto) Lymph # (Auto) [place] # (Auto) Eos # (Auto) Baso # (Auto) PT INR APTT Sodium Potassium Chloride Carbon Dioxide Anion Gap BUN Creatinine Est GFR ( Amer) Est GFR (Non-Af Amer) POC Glucose (mg/dL) 163 H Random Glucose Hemoglobin A1c Calcium Total Bilirubin AST ALT Alkaline Phosphatase Troponin I Total Protein Albumin Globulin Albumin/Globulin Ratio Vitamin B12 TSH 3rd Generation Assessment & Plan (1) NSTEMI (non-ST elevated myocardial infarction) Assessment and Plan: IV heparin allergic to asa plavix 300mg po daily bb, statins plan for cath in am at [facility] [place] to be scheduled for noon discussed with patient who agrees. Status: Acute (2) KYLE (acute kidney injury) Assessment and Plan: IVF hydration Status: Acute (3) Chest pain Assessment and Plan: resolved IV nitroglycerin Status: Acute (4) Dyslipidemia Assessment and Plan: statins Status: Acute (5) HTN (hypertension) Assessment and Plan: BB Status: Acute (6) TIA (transient ischemic attack) Status: Acute
[2018-06-26 06:17] LABS: HEMOGLOBIN 14.4 g/dL (12.0-16.0); MEAN CELL VOLUME 89.4 fl (81.0-99.0); MEAN CORPUSCULAR HEMOGLOBIN 30.5 pg (27.0-31.0); MEAN CORPUSCULAR HGB CONC 34.2 g/dL (33.0-37.0); RBC 4.71 Mil/uL (3.80-5.20); RED CELL DISTRIBUTION WIDTH 15.3 % (11.5-14.5); WHITE BLOOD COUNT 8.9 K/uL (4.8-10.8)
[2018-06-26 06:35] LABS: ALB/GLOB RATIO 1.3 (1.0-2.1); ALBUMIN 4.2 g/dL (3.5-5.0); CALCIUM 9.9 mg/dL (8.4-10.2)
[2018-06-26] MEDS: Levothyroxine 75 MCG TAB PO SCH (07:04)
[2018-06-26] MEDS ORDERED: methylPREDNISolone 125 MG in Sodium Chloride 0.9% 50 ML IVPB ONE (08:41)
[2018-06-26] MEDS: GlipiZIDE 10 mg SR Tab PO SCH ×2 (08:53→17:00)
[2018-06-26] MEDS: Heparin 25,000units in D5W 25,000 UNITS/250 ML BAG IV SCH (12:27)
--- NOTE | 2018-06-26 17:50 | CARD ---
APPROVED REPORT Date of service: 06/25/2018 EKG Measurement Heart [id number] <Conclusion> Sinus tachycardia with frequent premature ventricular complexes Left axis deviation Inferior-posterior infarct, age undetermined Possible Anterolateral infarct, age undetermined Abnormal ECG
--- NOTE | 2018-06-26 17:51 | CARD ---
APPROVED REPORT Date of service: 06/25/2018 EKG Measurement Heart [id number] <Conclusion> Normal sinus rhythm Left axis deviation Inferior-posterior infarct, age undetermined Abnormal ECG
[2018-06-27 06:09] LABS: HEMOGLOBIN 14.3 g/dL (12.0-16.0); MEAN CELL VOLUME 90.5 fl (81.0-99.0); MEAN CORPUSCULAR HGB CONC 33.2 g/dL (33.0-37.0); RBC 4.76 Mil/uL (3.80-5.20); RED CELL DISTRIBUTION WIDTH 15.3 % (11.5-14.5); WHITE BLOOD COUNT 14.4 K/uL (4.8-10.8)
[2018-06-27 06:22] LABS: ALB/GLOB RATIO 1.3 (1.0-2.1); ALBUMIN 4.1 g/dL (3.5-5.0); CALCIUM 9.7 mg/dL (8.4-10.2)
[2018-06-27] MEDS: Levothyroxine 75 MCG TAB PO SCH (06:45)
[2018-06-27] MEDS ORDERED: Dextrose 5%/0.45% NS 1,000 ML IV SCH (06:45)
[2018-06-27 08:03] VITALS: TEMP 98.5
--- NOTE | 2018-06-27 09:30 | CP.PCM.PN ---
<Tammy Willoughby - Last Filed: 06/27/18 10:40> Subjective - Date & Time of Evaluation Date of Evaluation: 06/27/18 Time of Evaluation: 08:20 - Subjective Subjective: No acute overnight events. Pt seen and examined by bedside this AM. Sates that she no longer has the chest pain and feels better. Denies dyspnea, palpitations , n/v/d/c. Currently NPO for cath later today. Pixate used [id number] Objective - Vital Signs/Intake and Output Vital Signs (last 24 hours): Temp Pulse Resp BP Pulse Ox 98.5 F 79 16 120/80 96 06/27/18 08:02 06/27/18 08:02 06/27/18 08:02 06/27/18 08:02 06/27/18 08:02 - Medications Medications: Current Medications Atorvastatin Calcium (Lipitor) 20 mg PO DAILY [facility] Carvedilol (Coreg) 6.25 mg PO Q12 [facility] Clopidogrel Bisulfate (Plavix) 300 mg PO DAILY [facility] Glipizide (Glucotrol Xl) 10 mg PO BRKDIN [facility] Last Admin: 06/26/18 17:00 Dose: Not Given Hydrochlorothiazide (Microzide) 12.5 mg PO DAILY [facility] Last Admin: 06/26/18 08:55 Dose: Not Given Dextrose/Sodium Chloride (Dextrose 5%/0.45% Ns 1000 Ml) 1,000 mls @ 60 mls/hr IV .[id number] [facility] Stop: 06/28/18 06:39 Last Admin: 06/27/18 06:50 Dose: 60 mls/hr Isosorbide Dinitrate (Isordil) 30 mg PO DAILY [facility] Last Admin: 06/26/18 08:54 Dose: Not Given Levothyroxine Sodium (Synthroid) 75 mcg PO DAILY@0630 [facility] Last Admin: 06/27/18 06:45 Dose: Not Given Memantine (Namenda) 10 mg PO DAILY [facility] Last Admin: 06/26/18 08:55 Dose: Not Given Sitagliptin Phosphate (Januvia) 100 mg PO DAILY [facility] Last Admin: 06/26/18 08:53 Dose: Not Given - Labs Labs: 06/27/18 04:20 06/27/18 04:20 PT 10.6 Seconds (9.8-13.1) 06/25/18 02:49 INR 1.0 (0.9-1.2) 06/25/18 02:49 APTT 64.5 Seconds (25.6-37.1) H D 06/26/18 05:26 - Constitutional Appears: No Acute Distress - Head Exam Head Exam: NORMAL INSPECTION - Eye Exam Eye Exam: EOMI, Normal appearance - ENT Exam ENT Exam: Mucous Membranes Moist - Respiratory Exam Respiratory Exam: Clear to Ausculation Bilateral. absent: Wheezes - Cardiovascular Exam Cardiovascular Exam: REGULAR RHYTHM, +S1, +S2. absent: Murmur - GI/Abdominal Exam GI & Abdominal Exam: Soft, Normal Bowel Sounds. absent: Tenderness - Extremities Exam Extremities Exam: Normal Inspection. absent: Pedal Edema - Neurological Exam Neurological Exam: Alert, Awake, Oriented x3 - Psychiatric Exam Psychiatric exam: Normal Mood Assessment and Plan - Assessment and Plan (Free Text) Assessment: Assessment/Plan: 72 YO female with PMHx of HTN, DM, Stroke x 2 is admitted for chest pain, sig finding of NSTEMI. -VS remain stable -blood work; mild elevation of bun.cr -on plavix, BB and anti-lipid -plan as ordered -NPO for cath today -cardiology on board -ID on board; no indication for abx at this time Pt discussed with Dr. Pinedo <Sanjay Pinedo - Last Filed: 06/27/18 17:34> Objective - Vital Signs/Intake and Output Vital Signs (last 24 hours): Temp Pulse Resp BP Pulse Ox 98.5 F 86 18 121/80 100 06/27/18 11:59 06/27/18 11:59 06/27/18 11:59 06/27/18 11:59 06/27/18 11:59 - Medications Medications: Current Medications Atorvastatin Calcium (Lipitor) 20 mg PO DAILY [facility] Last Admin: 06/27/18 11:00 Dose: 20 mg Carvedilol (Coreg) 6.25 mg PO Q12 [facility] Glipizide (Glucotrol Xl) 10 mg PO BRKDIN [facility] Last Admin: 06/27/18 10:31 Dose: Not Given Hydrochlorothiazide (Microzide) 12.5 mg PO DAILY [facility] Last Admin: 06/27/18 10:31 Dose: Not Given Dextrose/Sodium Chloride (Dextrose 5%/0.45% Ns 1000 Ml) 1,000 mls @ 60 mls/hr IV .[id number] [facility] Stop: 06/28/18 06:39 Last Admin: 06/27/18 06:50 Dose: 60 mls/hr Isosorbide Mononitrate (Imdur Er) 30 mg PO DAILY [facility] Last Admin: 06/27/18 11:00 Dose: 30 mg Levothyroxine Sodium (Synthroid) 75 mcg PO DAILY@0630 [facility] Last Admin: 06/27/18 06:45 Dose: Not Given Memantine (Namenda) 10 mg PO DAILY [facility] Last Admin: 06/27/18 10:31 Dose: Not Given Sitagliptin Phosphate (Januvia) 100 mg PO DAILY [facility] Last Admin: 06/27/18 10:31 Dose: Not Given - Labs Labs: 06/27/18 04:20 06/27/18 04:20 PT 10.6 Seconds (9.8-13.1) 06/25/18 02:49 INR 1.0 (0.9-1.2) 06/25/18 02:49 APTT 64.5 Seconds (25.6-37.1) H D 06/26/18 05:26 Assessment and Plan - Assessment and Plan (Free Text) Assessment: Patient was personally seen and examined by me in rounds with residents. Available labs and diagnostic data reviewed. Case, Patient's condition and management plan discussed with residents in rounds. Agree with resident's progress note. Plan: As ordered.
[2018-06-27] MEDS: GlipiZIDE 10 mg SR Tab PO SCH (10:31)
[2018-06-27 11:59] VITALS: BP 121/80; PULSE 86; RESP 18; O2SAT 100
--- NOTE | 2018-06-27 12:44 | CP.PCM.PN ---
Subjective - Date & Time of Evaluation Date of Evaluation: 06/27/18 Time of Evaluation: 07:00 - Subjective Subjective: afeb nad no chest pain Objective - Vital Signs/Intake and Output Vital Signs (last 24 hours): Temp Pulse Resp BP Pulse Ox 98.5 F 86 18 121/80 100 06/27/18 11:59 06/27/18 11:59 06/27/18 11:59 06/27/18 11:59 06/27/18 11:59 - Medications Medications: Current Medications Atorvastatin Calcium (Lipitor) 20 mg PO DAILY [facility] Last Admin: 06/27/18 11:00 Dose: 20 mg Carvedilol (Coreg) 6.25 mg PO Q12 [facility] Glipizide (Glucotrol Xl) 10 mg PO BRKDIN [facility] Last Admin: 06/27/18 10:31 Dose: Not Given Hydrochlorothiazide (Microzide) 12.5 mg PO DAILY [facility] Last Admin: 06/27/18 10:31 Dose: Not Given Dextrose/Sodium Chloride (Dextrose 5%/0.45% Ns 1000 Ml) 1,000 mls @ 60 mls/hr IV .[id number] [facility] Stop: 06/28/18 06:39 Last Admin: 06/27/18 06:50 Dose: 60 mls/hr Isosorbide Mononitrate (Imdur Er) 30 mg PO DAILY [facility] Last Admin: 06/27/18 11:00 Dose: 30 mg Levothyroxine Sodium (Synthroid) 75 mcg PO DAILY@0630 [facility] Last Admin: 06/27/18 06:45 Dose: Not Given Memantine (Namenda) 10 mg PO DAILY [facility] Last Admin: 06/27/18 10:31 Dose: Not Given Sitagliptin Phosphate (Januvia) 100 mg PO DAILY [facility] Last Admin: 06/27/18 10:31 Dose: Not Given - Labs Labs: 06/27/18 04:20 06/27/18 04:20 PT 10.6 Seconds (9.8-13.1) 06/25/18 02:49 INR 1.0 (0.9-1.2) 06/25/18 02:49 APTT 64.5 Seconds (25.6-37.1) H D 06/26/18 05:26 - Constitutional Appears: Non-toxic, Chronically Ill - Head Exam Head Exam: NORMOCEPHALIC - Eye Exam Eye Exam: PERRL - ENT Exam ENT Exam: Mucous Membranes Dry - Neck Exam Neck Exam: absent: Lymphadenopathy - Respiratory Exam Respiratory Exam: Decreased Breath Sounds - Cardiovascular Exam Cardiovascular Exam: REGULAR RHYTHM - GI/Abdominal Exam GI & Abdominal Exam: Distended, Soft Assessment and Plan (1) Chest pain Status: Acute (2) Dyslipidemia Status: Acute (3) HTN (hypertension) Status: Acute - Assessment and Plan (Free Text) Assessment: cont rx no antibiotics for now
== END 2018-06-27 19:01 | disposition short-term general hospital (02) | DRG 281 ==
LOC: H.ER 00:12 → H.ERHOLD 02:18 → OBSVTOIN 02:18 → H.TEL 04:55
PROVIDERS: ADMIT Internal Medicine; ATTEND Internal Medicine
PROC: 4A023N7 Measurement of Cardiac Sampling and Pressure, Left Heart, Percutaneous Approach (ICD-10-PCS; principal; 2018-06-26)
PROC: B206YZZ Plain Radiography of Right and Left Heart using Other Contrast (ICD-10-PCS; 2018-06-26)
DX: I21.4 Non-ST elevation (NSTEMI) myocardial infarction (principal); N17.9 Acute kidney failure, unspecified; G45.9 Transient cerebral ischemic attack, unspecified; J44.9 Chronic obstructive pulmonary disease, unspecified; Z79.02 Long term (current) use of antithrombotics/antiplatelets; Z86.73 Personal history of transient ischemic attack (TIA), and cerebral infarction without residual deficits; Z87.891 Personal history of nicotine dependence; Z88.6 Allergy status to analgesic agent; E66.01 Morbid (severe) obesity due to excess calories; Z79.84 Long term (current) use of oral hypoglycemic drugs; Z79.899 Other long term (current) drug therapy; E03.9 Hypothyroidism, unspecified; E11.9 Type 2 diabetes mellitus without complications; E78.00 Pure hypercholesterolemia, unspecified; E78.5 Hyperlipidemia, unspecified; I10 Essential (primary) hypertension

== ENCOUNTER 2018-08-11 11:27 | Emergency (ER) | payer MEDICARE, OTHER ==
[2018-08-11 11:27] VITALS: BMI 28.3
--- NOTE | 2018-08-11 12:54 | ED PDOC ---
HPI: Psych/Substance Abuse Time Seen by Provider: 08/11/18 11:44 Chief Complaint (Nursing): Psychiatric Evaluation Chief Complaint (Provider): Dementia History Per: Patient, Family History/Exam Limitations: no limitations Onset/Duration Of Symptoms: Days (several weeks) Additional Complaint(s): Pt. taking her dementia meds and still is aggressive. Family feels her dementia is getting worst. No chest pain, nausea, vomit, or any pain. No dyspnea. Is not suicidal or homicidal. Takes her home meds. Past Medical History Reviewed: Nursing Documentation, Vital Signs - Medical History PMH: CVA (x2), Diabetes, HTN, Hypercholesterolemia, Hypothyroidism Denies: Chronic Kidney Disease - Surgical History Surgical History: Tonsillectomy - Family History Family History: States: Unknown Family Hx - Living Arrangements Living Arrangements: Alone - Social History Alcohol: None Drugs: Denies - Home Medications Home Medications: Ambulatory Orders Medication Instructions Recorded Allopurinol [Zyloprim] 300 mg PO HS 06/25/18 Atorvastatin [Lipitor] 10 mg PO DAILY 06/25/18 Calcitriol [Rocaltrol] 0.25 mcg PO DAILY 06/25/18 Clopidogrel [Plavix] 75 mg PO DAILY 06/25/18 Donepezil HCl [Aricept] 10 mg PO HS 06/25/18 Glimepiride [amaRYL] 4 mg PO BID 06/25/18 Hydrochlorothiazide [Microzide] 12.5 mg PO DAILY 06/25/18 Icosapent Ethyl [Vascepa] 2 cap PO DAILY 06/25/18 Levothyroxine [Synthroid] 75 mcg PO DAILY 06/25/18 Memantine [Namenda] 10 mg PO DAILY 06/25/18 QUEtiapine [SEROquel] 100 mg PO HS 06/25/18 SITagliptin [Januvia] 100 mg PO DAILY 06/25/18 Cholecalciferol [Vitamin D] 1,000 iu PO DAILY 08/11/18 Insulin Detemir [Levemir] 14 unit SC QA 08/11/18 - Allergies Allergies/Adverse Reactions: Allergies Allergy/AdvReac Type Severity Reaction Status Date / Time aspirin Allergy ANAPHYLAXIS Verified 05/28/18 20:26 Penicillins Allergy ANAPHYLAXIS Verified 05/28/18 20:26 shrimp AdvReac ANAPHYLAXIS Verified 05/28/18 20:26 Review of Systems Constitutional: Negative for: Weakness Eyes: Negative for: Vision Change ENT: Negative for: Nose Pain, Nose Discharge, Throat Pain Cardiovascular: Negative for: Chest Pain Respiratory: Negative for: Shortness of Breath Gastrointestinal: Negative for: Nausea, Vomiting, Abdominal Pain, Diarrhea Musculoskeletal: Negative for: Neck Pain, Shoulder Pain, Back Pain, Hand Pain Skin: Negative for: Rash Neurological: Negative for: Weakness Psych: Negative for: Psychosis Physical Exam - Reviewed Nursing Documentation Reviewed: Yes Vital Signs Reviewed: Yes - Physical Exam Appears: Positive for: Non-toxic, No Acute Distress Head Exam: Positive for: ATRAUMATIC, NORMAL INSPECTION, NORMOCEPHALIC Skin: Positive for: Normal Color, Warm, DRY Eye Exam: Positive for: EOMI, Normal appearance, PERRL ENT: Positive for: Normal ENT Inspection Neck: Positive for: Normal, Painless ROM Cardiovascular/Chest: Positive for: Regular Rate, Rhythm Respiratory: Positive for: CNT, Normal Breath Sounds Gastrointestinal/Abdominal: Positive for: Soft. Negative for: Tenderness Back: Positive for: Normal Inspection. Negative for: L CVA Tenderness, R CVA Tenderness Extremity: Positive for: Normal ROM. Negative for: Tenderness Neurologic/Psych: Positive for: Alert, Oriented. Negative for: Motor/Sensory Deficits - Progress ED Course And Treament: 1735: Crisis saw pt. Does not meet criteria for admit. Fu up with pcp. Pt. is aaox3. Family with pt. Disposition - Clinical Impression Clinical Impression: Dementia - Patient ED Disposition Is Patient to be Admitted: No Counseled Patient/Family Regarding: Diagnosis, Need For Followup - Disposition Referrals: [facility] [Outside] - 08/15/18 Disposition: Routine/Home Disposition Time: 17:36 Condition: STABLE Additional Instructions: Return if not better in 3 days. Instructions: Dementia (Including Alzheimer Disease) Print Language: [place]
[2018-08-11 15:30] VITALS: RESP 19; O2SAT 98
[2018-08-12 07:17] VITALS: BP 130/78; PULSE 78; TEMP 97
== END 2018-08-11 16:00 | disposition home or self-care (01) ==
LOC: H.ER 11:27
DX: F03.91 Unspecified dementia, unspecified severity, with behavioral disturbance (principal); E03.9 Hypothyroidism, unspecified; E11.9 Type 2 diabetes mellitus without complications; E78.00 Pure hypercholesterolemia, unspecified; I10 Essential (primary) hypertension; Z79.4 Long term (current) use of insulin; Z86.73 Personal history of transient ischemic attack (TIA), and cerebral infarction without residual deficits; Z88.0 Allergy status to penicillin